=== PATIENT | male | born 1965 | race Caucasian/White ===

== ENCOUNTER 2020-12-08 07:21 | Outpatient (REF) | payer OTHER, SELFPAY ==
[2020-12-08 08:14] LABS: MANUAL DIFF FLAG NO
[2020-12-08 08:17] LABS: Basophils Percent Auto 0.4 % (0-2); Eosinophils Absolute Auto 0.2 X10*3/uL (0.0-0.4); Eosinophils Percent Auto 1.4 % (0-4); Hematocrit 46.5 % (42-52); Hemoglobin 15.2 g/dl (14.0-18.0); Imm Gran Abs Auto 0.06 X10*3/uL (0.00-0.03); Imm Gran Pct Auto 0.6 % (0.0-0.4); Lymphocytes Absolute Auto 2.3 X10*3/uL (1.2-4.9); Lymphocytes Percent Auto 21.2 % (20-40); Mean Corpuscular HGB Conc 32.7 g/dl (31.0-36.0); Mean Corpuscular Hemoglobin 28.5 pg (27.0-33.0); Mean Corpuscular Volume 87.2 fL (80-98); Mean Platelet Volume 10.7 fL (9.4-12.4); Monocytes Absolute Auto 0.7 X10*3/uL (0.1-1.2); Monocytes Percent Auto 6.8 % (2-11); Neutrophils Absolute Auto 7.6 X10*3/uL (2.0-8.3); Neutrophils Percent Auto 69.6 % (45-73); Platelet Count 342 X10*3/uL (160-400); Red Blood Count 5.33 X10*6/uL (4.60-5.80); Red Cell Distribution Width 13.2 % (11.0-16.0); White Blood Count 10.9 X10*3/uL (4.8-10.8)
[2020-12-08 08:41] LABS: Alanine Aminotransferase 41 U/L (0-40); Albumin Level 4.4 g/dL (3.5-5.0); Alkaline Phosphatase 108 U/L (39-117); Anion Gap 12 (12-20); Aspartate Amino Transferase 22 U/L (5-37); Bilirubin Total 0.3 mg/dL (0.0-1.0); Blood Urea Nitrogen 23 mg/dL (9-16); Calcium 9.5 mg/dL (8.4-10.2); Carbon Dioxide 26 mmol/L (22-29); Chloride 109 mmol/L (96-108); Cholesterol 280 mg/dL; Estimated Glomerular Filt Rate > 60; Glucose Fasting 105 mg/dL (60-99); HDL Cholesterol 44 mg/dL; LDL Cholesterol Calculated 176 mg/dl; Potassium 4.7 mmol/L (3.3-5.1); Sodium 142 mmol/L (135-145); Total Protein 7.1 g/dL (6.5-8.0); Triglycerides 300 mg/dL
[2020-12-08 08:48] LABS: Glucose Urine UA NEG (NEG); Leukocyte Esterase Urine NEG (NEG); Nitrite Urine NEG (NEG); Specific Gravity - Urine >= 1.030 (1.005-1.025); UACC Culture Trigger NO; Urine Blood 1+ (NEG); Urine Ketones NEG (NEG); Urine Protein NEG (NEG-TRACE)
[2020-12-08 08:52] LABS: Appearance Urine HAZY; Color Urine YELLOW
[2020-12-08 08:58] LABS: Mucus Urine 2+ /LPF; Squamous Epithelial Cell Urine TRACE /LPF; WBC Urine 0 /HPF (0-4)
[2020-12-08 09:03] LABS: TSH reflex Free T4 1.41 uIU/mL (0.32-4.0)
== END 2020-12-08 07:22 | disposition home or self-care (01) ==
LOC: HO.LAB 07:21
PROVIDERS: PCP Internal Medicine; Visit Provider Internal Medicine
DX: I10 Essential (primary) hypertension (principal); E78.00 Pure hypercholesterolemia, unspecified
CPT/HCPCS: 36415; 80053; 80061; 81001; 84443; 85025

== ENCOUNTER 2021-07-31 08:00 | Outpatient (REF) | payer OTHER, SELFPAY ==
[2021-07-31 08:20] LABS: MANUAL DIFF FLAG NO
[2021-07-31 09:31] LABS: Basophils Percent Auto 0.4 % (0-2); Eosinophils Absolute Auto 0.2 X10*3/uL (0.0-0.4); Hematocrit 45.7 % (42.0-52.0); Hemoglobin 14.8 g/dl (14.0-18.0); Imm Gran Abs Auto 0.03 X10*3/uL (0.00-0.03); Imm Gran Pct Auto 0.3 % (0.0-0.4); Lymphocytes Absolute Auto 1.9 X10*3/uL (1.2-4.9); Lymphocytes Percent Auto 21.7 % (20-40); Mean Corpuscular HGB Conc 32.4 g/dl (31.0-36.0); Mean Corpuscular Hemoglobin 28.3 pg (27.0-33.0); Mean Corpuscular Volume 87.4 fL (80.0-98.0); Mean Platelet Volume 10.8 fL (9.4-12.4); Monocytes Absolute Auto 0.8 X10*3/uL (0.1-1.2); Monocytes Percent Auto 8.8 % (2-11); Neutrophils Absolute Auto 5.9 x10*3/uL (2.0-8.3); Neutrophils Percent Auto 66.8 % (45-73); Platelet Count 353 X10*3/uL (160-400); Red Blood Count 5.23 X10*6/uL (4.60-5.80); Red Cell Distribution Width 13.4 % (11.0-16.0); White Blood Count 8.9 X10*3/uL (4.8-10.8)
[2021-07-31 09:36] LABS: Estimated Average Glucose 108 mg/dL; Hemoglobin A1c % 5.4 %
[2021-07-31 10:13] LABS: Alanine Aminotransferase 18 U/L (0-40); Albumin Level 4.1 g/dL (3.5-5.0); Alkaline Phosphatase 87 U/L (39-117); Anion Gap 11 (12-20); Aspartate Amino Transferase 19 U/L (5-37); Bilirubin Total 0.6 mg/dL (0.0-1.0); Blood Urea Nitrogen 20 mg/dL (9-16); Calcium 9.5 mg/dL (8.4-10.2); Carbon Dioxide 25 mmol/L (22-29); Chloride 110 mmol/L (96-108); Cholesterol 232 mg/dL; Estimated Glomerular Filt Rate > 60; Glucose Fasting 104 mg/dL (60-99); HDL Cholesterol 43 mg/dL; LDL Cholesterol Calculated 169 mg/dl; Potassium 5.3 mmol/L (3.3-5.1); Sodium 141 mmol/L (135-145); Total Protein 6.5 g/dL (6.5-8.0); Triglycerides 101 mg/dL
[2021-07-31 10:17] LABS: TSH reflex Free T4 1.26 uIU/mL (0.32-4.0)
[2021-07-31 10:17] LABS: Appearance Urine CLEAR; Color Urine YELLOW; Glucose Urine UA NEG (NEG); Leukocyte Esterase Urine NEG (NEG); Nitrite Urine NEG (NEG); PH 5.5 (5.0-8.0); Specific Gravity - Urine >= 1.030 (1.005-1.025); UACC Culture Trigger NO; Urine Blood 1+ (NEG); Urine Ketones NEG (NEG); Urine Protein NEG (NEG-TRACE)
[2021-07-31 10:26] LABS: Mucus Urine 2+ /LPF; Squamous Epithelial Cell Urine 1+ /LPF; WBC Urine 0 /HPF (0-4)
== END 2021-07-31 08:01 | disposition home or self-care (01) ==
LOC: HO.LAB 08:00
PROVIDERS: PCP Internal Medicine; Visit Provider Internal Medicine
DX: E78.00 Pure hypercholesterolemia, unspecified (principal); I10 Essential (primary) hypertension; R73.01 Impaired fasting glucose
CPT/HCPCS: 36415; 80053; 80061; 81001; 81003; 83036; 84443; 85025

== ENCOUNTER 2021-10-02 09:29 | Outpatient (REF) | payer OTHER, SELFPAY ==
--- NOTE | ~2021-10-02 | XR_ITS ---
EXAMINATION: BILATERAL SHOULDER. CLINICAL INFORMATION: Pain. COMPARISON: None TECHNIQUE: 4 views each shoulder. FINDINGS: Left shoulder: There is a maintained glenohumeral and AC joint space. No bony erosive changes. No visible acute fracture, dislocation or subluxation seen. The soft tissues are normal. Right shoulder: There is a maintained glenohumeral and AC joint space. No visible acute fracture or dislocation seen. The soft tissues are normal. XR/XR shoulder RT min 2V IMPRESSION: Unremarkable bilateral shoulder exam. No visible fracture, dislocation or bony erosive changes.
--- NOTE | ~2021-10-02 | XR_ITS ---
EXAMINATION: BILATERAL SHOULDER. CLINICAL INFORMATION: Pain. COMPARISON: None TECHNIQUE: 4 views each shoulder. FINDINGS: Left shoulder: There is a maintained glenohumeral and AC joint space. No bony erosive changes. No visible acute fracture, dislocation or subluxation seen. The soft tissues are normal. Right shoulder: There is a maintained glenohumeral and AC joint space. No visible acute fracture or dislocation seen. The soft tissues are normal. XR/XR shoulder LT min 2V IMPRESSION: Unremarkable bilateral shoulder exam. No visible fracture, dislocation or bony erosive changes.
== END 2021-10-02 09:30 | disposition home or self-care (01) ==
LOC: HO.XRAY 09:29
PROVIDERS: PCP Internal Medicine; Visit Provider Internal Medicine
DX: M25.511 Pain in right shoulder (principal); M25.512 Pain in left shoulder
CPT/HCPCS: 73030

== ENCOUNTER 2022-04-21 06:14 | Outpatient (REF) | payer OTHER, SELFPAY ==
[2022-04-21 06:31] LABS: MANUAL DIFF FLAG NO
[2022-04-21 07:43] LABS: Basophils Percent Auto 0.4 % (0-2); Eosinophils Absolute Auto 0.2 X10*3/uL (0.0-0.4); Eosinophils Percent Auto 2.3 % (0-4); Hematocrit 47.5 % (42.0-52.0); Hemoglobin 15.5 g/dl (14.0-18.0); Imm Gran Abs Auto 0.07 X10*3/uL (0.00-0.03); Imm Gran Pct Auto 0.7 % (0.0-0.4); Lymphocytes Absolute Auto 2.3 X10*3/uL (1.2-4.9); Lymphocytes Percent Auto 21.8 % (20-40); Mean Corpuscular HGB Conc 32.6 g/dl (31.0-36.0); Mean Corpuscular Hemoglobin 28.5 pg (27.0-33.0); Mean Corpuscular Volume 87.5 fL (80.0-98.0); Mean Platelet Volume 10.4 fL (9.4-12.4); Monocytes Absolute Auto 0.9 X10*3/uL (0.1-1.2); Monocytes Percent Auto 8.2 % (2-11); Neutrophils Absolute Auto 6.9 x10*3/uL (2.0-8.3); Neutrophils Percent Auto 66.6 % (45-73); Platelet Count 406 X10*3/uL (160-400); Red Blood Count 5.43 X10*6/uL (4.60-5.80); White Blood Count 10.4 X10*3/uL (4.8-10.8)
[2022-04-21 07:55] LABS: Appearance Urine Clear; Color Urine Yellow; Glucose Urine UA Negative (Negative); Leukocyte Esterase Urine Negative (Negative); Nitrite Urine Negative (Negative); Specific Gravity - Urine >= 1.030 (1.005-1.025); Urine Blood Negative (Negative); Urine Ketones Negative (Negative); Urine Protein Trace mg/dL (Neg-Trace)
[2022-04-21 07:56] LABS: Estimated Average Glucose 108 mg/dL; Hemoglobin A1c % 5.4 %
[2022-04-21 08:34] LABS: Alanine Aminotransferase 25 U/L (0-40); Albumin Level 4.4 g/dL (3.5-5.0); Alkaline Phosphatase 115 U/L (39-117); Anion Gap 13 (12-20); Aspartate Amino Transferase 21 U/L (5-37); Bilirubin Total 0.4 mg/dL (0.0-1.0); Blood Urea Nitrogen 24 mg/dL (9-16); Calcium 9.4 mg/dL (8.4-10.2); Carbon Dioxide 25 mmol/L (22-29); Chloride 107 mmol/L (96-108); Cholesterol 254 mg/dL; Estimated Glomerular Filt Rate > 60; Glucose Fasting 105 mg/dL (60-99); HDL Cholesterol 43 mg/dL; LDL Cholesterol Calculated 170 mg/dl; Potassium 4.9 mmol/L (3.3-5.1); Sodium 140 mmol/L (135-145); TSH reflex Free T4 2.13 uIU/mL (0.32-4.0); Total Protein 6.9 g/dL (6.5-8.0); Triglycerides 208 mg/dL; Vitamin D 25-OH Total 19.1 ng/mL (>30)
== END 2022-04-21 06:15 | disposition home or self-care (01) ==
LOC: HO.LAB 06:14
PROVIDERS: PCP Internal Medicine; Visit Provider Internal Medicine
DX: E78.00 Pure hypercholesterolemia, unspecified (principal); E55.9 Vitamin D deficiency, unspecified; R73.01 Impaired fasting glucose; R30.0 Dysuria; I10 Essential (primary) hypertension
CPT/HCPCS: 36415; 80053; 80061; 81003; 82306; 83036; 84443; 85025

== ENCOUNTER 2022-08-23 06:00 | Outpatient (REF) | payer OTHER, SELFPAY ==
[2022-08-23 06:19] LABS: MANUAL DIFF FLAG NO
[2022-08-23 07:36] LABS: Basophils Absolute Auto 0.1 X10*3/uL (0.0-0.2); Basophils Percent Auto 0.5 % (0-2); Eosinophils Absolute Auto 0.2 X10*3/uL (0.0-0.4); Eosinophils Percent Auto 2.3 % (0-4); Hematocrit 47.1 % (42.0-52.0); Hemoglobin 15.5 g/dl (14.0-18.0); Imm Gran Abs Auto 0.03 X10*3/uL (0.00-0.03); Imm Gran Pct Auto 0.3 % (0.0-0.4); Lymphocytes Percent Auto 29.6 % (20-40); Mean Corpuscular HGB Conc 32.9 g/dl (31.0-36.0); Mean Corpuscular Hemoglobin 28.5 pg (27.0-33.0); Mean Corpuscular Volume 86.6 fL (80.0-98.0); Mean Platelet Volume 10.5 fL (9.4-12.4); Monocytes Absolute Auto 0.9 X10*3/uL (0.1-1.2); Monocytes Percent Auto 8.4 % (2-11); Neutrophils Absolute Auto 5.9 x10*3/uL (2.0-8.3); Neutrophils Percent Auto 58.9 % (45-73); Platelet Count 380 X10*3/uL (160-400); Red Blood Count 5.44 X10*6/uL (4.60-5.80); Red Cell Distribution Width 13.2 % (11.0-16.0); White Blood Count 10.1 X10*3/uL (4.8-10.8)
[2022-08-23 08:24] LABS: Alanine Aminotransferase 37 U/L (0-40); Albumin Level 4.3 g/dL (3.5-5.0); Alkaline Phosphatase 113 U/L (39-117); Anion Gap 14 (12-20); Aspartate Amino Transferase 26 U/L (5-37); Bilirubin Total 0.2 mg/dL (0.0-1.0); Blood Urea Nitrogen 24 mg/dL (9-16); Calcium 9.4 mg/dL (8.4-10.2); Carbon Dioxide 23 mmol/L (22-29); Chloride 110 mmol/L (96-108); Cholesterol 243 mg/dL; Estimated Glomerular Filt Rate > 60; Glucose Fasting 104 mg/dL (60-99); HDL Cholesterol 44 mg/dL; LDL Cholesterol Calculated 143 mg/dl; Potassium 4.6 mmol/L (3.3-5.1); Sodium 142 mmol/L (135-145); Total Protein 6.8 g/dL (6.5-8.0); Triglycerides 281 mg/dL
[2022-08-23 08:25] LABS: TSH reflex Free T4 2.35 uIU/mL (0.32-4.0); Vitamin D 25-OH Total 32.8 ng/mL (>30)
[2022-08-23 08:26] LABS: Prostate Specific Antigen 0.59 ng/mL (<0.05-4.0)
[2022-08-23 08:35] LABS: Appearance Urine Cloudy; Color Urine Yellow; Glucose Urine UA Negative (Negative); Leukocyte Esterase Urine Negative (Negative); Nitrite Urine Negative (Negative); Specific Gravity - Urine 1.025 (1.005-1.025); Urine Blood Negative (Negative); Urine Ketones Negative (Negative); Urine Protein Negative (Neg-Trace)
== END 2022-08-23 06:01 | disposition home or self-care (01) ==
LOC: HO.LAB 06:00
PROVIDERS: Nurse Practitioner Family; PCP Internal Medicine; Visit Provider Internal Medicine
DX: I10 Essential (primary) hypertension (principal); E78.00 Pure hypercholesterolemia, unspecified; E55.9 Vitamin D deficiency, unspecified; R79.89 Other specified abnormal findings of blood chemistry; Z12.5 Encounter for screening for malignant neoplasm of prostate
CPT/HCPCS: 36415; 80053; 80061; 81003; 82306; 84153; 84443; 85025

== ENCOUNTER 2022-11-09 09:49 | Outpatient (REF) | payer OTHER, SELFPAY ==
--- NOTE | ~2022-11-09 | XR_ITS ---
Exams:: Bilateral shoulders 2 views each HISTORY: Pain. FINDINGS: No focal lesion. The soft tissue calcifications. Joint spaces preserved. Minimal hypertrophic changes about the right greater tuberosity which may be sequela of old injury. XR/XR shoulder RT min 2V IMPRESSION: Minor chronic findings right shoulder. This may be sequela of an old injury.
--- NOTE | ~2022-11-09 | XR_ITS ---
Exams:: Bilateral shoulders 2 views each HISTORY: Pain. FINDINGS: No focal lesion. The soft tissue calcifications. Joint spaces preserved. Minimal hypertrophic changes about the right greater tuberosity which may be sequela of old injury. XR/XR shoulder LT min 2V IMPRESSION: Minor chronic findings right shoulder. This may be sequela of an old injury.
== END 2022-11-09 09:50 | disposition home or self-care (01) ==
LOC: HO.HOSX 09:49
PROVIDERS: Visit Provider Orthopaedic Surgery
DX: M25.811 Other specified joint disorders, right shoulder (principal); M25.512 Pain in left shoulder
CPT/HCPCS: 20610; 73030; 99202; J3301

== ENCOUNTER 2022-11-09 15:13 | Outpatient (AMB) | payer OTHER, SELFPAY ==
--- NOTE | 2022-11-09 15:27 | MHC.OFFVIS ---
Intake Intake Visit Reasons: New Pt - Bilateral Shoulder Pain Intake Note: Kyle is a 57 year old left hand dominant male whop presents today as a new patient for a evaluation for bilateral shoulder pain. Patient reports having pain for many years but it has gotten worse over the pat 2 years. Patient reports his right shoulder is worse than his left. Hx of PT with no relief. No hx of injections. His pain is on the lateral aspect of both shoulders. He states when he puts his left arm behind his back he feels like he arm went on him and he has to shake it back. Pain is worse when doing over the head lifting,pulling and pushing. Denies numbness and tingling. He has done physical therapy for 12 weeks over the last 6 months which aggravated his pain he has also tried Tylenol and anti-inflammatory medicines which gave him minimal relief. He reports weakness when lifting his right hand above shoulder height. Allergies No Known Allergies [No Known Allergies*] Allergy (Verified 11/09/22 15:32) Medication List - Last Reconciled 11/09/22 by Syed Cope MD lisinopril 10 mg PO DAILY 90 days pravastatin 10 mg PO DAILY 90 days [facility] Medical History Benign essential hypertension Impaired fasting glucose Overweight (BMI 25.0-29.9) Plantar wart, left foot Pure hypercholesterolemia Smoker Vitamin D deficiency Surgical History No significant past surgical history Family History Mother Bladder cancer COPD (chronic obstructive pulmonary disease) Father No problems noted. Social History Housing: House Alcohol intake: current Alcohol intake frequency: a few times a month Alcohol type: beer Patient Tobacco Use Status: Current everyday Tobacco user Tobacco use type: Cigarette Cigarette Packs Per Day: 1 Cigarettes Per Day: 12 e-Cigarette/Vaping Use: Never Used Second Hand Smoke Exposure: Yes service: No Current occupational status: employed Cognitive needs: No Hearing needs: No Vision needs: No Physical Exam Const Other: Well-nourished well-developed very friendly male awake alert and oriented x3 in no acute distress Extrem Other: Bilateral upper extremity examination shows good capillary refill, no skin lesions noted, normal sensation light touch Bilateral shoulder examination shows forward flexion to 160 degrees, external rotation to 50 degrees, positive impingement signs, 4/5 strength with supraspinatus testing, tenderness over his acromioclavicular joints, no instability Office Procedures Joint Injection/Drain Joint Injection/Drain Primary Site: right shoulder Prep: site was prepped using aseptic technique Injected: 40 mg of, Kenalog and 1% plain lidocaine Procedure: The patient tolerated the procedure well Coding - Large joint Procedure code (CPT) selection complete Results Reviewed Results Reviewed: X-rays of the patient's bilateral shoulders taken today show severe acromioclavicular joint narrowing, type 2 acromion, no acute bony abnormalities Assessment & Plan Assessment & Plan (1) Impingement of right shoulder: Code(s): M25.811 - Other specified joint disorders, right shoulder Plan Mr. Bean presents with bilateral shoulder pains and weakness, right greater than left, due to impingement syndrome, acromioclavicular joint arthritis and possible rotator cuff tearing. I had a lengthy discussion with the patient regarding the treatment options. He wishes to hold off on surgery for as long as possible. I agree with this plan. At this point the patient's left shoulder pain is tolerable to him. The risks and benefits of a right shoulder cortisone injection were discussed at length with the patient. He wished to proceed. He tolerated the injection well. Activity modifications were discussed at length with the patient. He will follow up with me on an as-needed basis should his symptoms not plateau at an unacceptable level over the next few months. Feel free to call me at any time should questions regarding his orthopedic management arise. Thank you very much for asking me to see this very friendly gentleman. I spent 22 minutes in reviewing the patient's records and imaging studies, seeing the patient and documenting in the medical record. Orders: Orders XR shoulder LT min 2V Today M25.512 - Pain in left shoulder XR shoulder RT min 2V Today M25.511 - Pain in right shoulder AMB Joint Injection/Aspiration Today M25.811 - Other specified joint disorders, right shoulder Coding Level of Care Code New Pt Level 2 (18975) Diagnoses Impingement of right shoulder M25.811 CPT Codes Coding - 17037 Large joint: 86634 - Large joint ([id number])
== END 2022-11-09 15:59 | disposition home or self-care (01) ==
PROVIDERS: PCP Internal Medicine; Visit Provider Orthopaedic Surgery
DX: M25.811 Other specified joint disorders, right shoulder (principal); M25.512 Pain in left shoulder; M25.511 Pain in right shoulder
CPT/HCPCS: 20610; 99204

== ENCOUNTER 2022-12-30 08:42 | Outpatient (AMB) | payer OTHER, SELFPAY ==
--- NOTE | 2022-12-30 08:49 | A.OFFVIS_ITS ---
Intake Vital Signs 12/30/22 08:59 Height 6 ft Weight 212 lb BMI 28.7 Intake Visit Reasons: OV - Right Shoulder Pain - Last Injection 11/09/22 Intake Note: Kyle 57 yr old male presents today for his W/C injury from 12/26/22. States while working on a car, he heard a pop in shoulder. 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 Since that time he has not been able to lift his right hand above shoulder height. He did have a cortisone injection given into his right shoulder on 11/09/2022. The patient states that his pain and weakness are significantly worse since suffering this injury at work. Allergies No Known Allergies [No Known Allergies*] Allergy (Verified 12/30/22 08:50) Medication List - Last Reconciled 12/30/22 by Syed Cope MD lisinopril 10 mg PO DAILY 90 days pravastatin 10 mg PO DAILY 90 days [facility] Medical History Benign essential hypertension Impaired fasting glucose Overweight (BMI 25.0-29.9) Plantar wart, left foot Pure hypercholesterolemia Smoker Vitamin D deficiency Surgical History No significant past surgical history Family History Mother Bladder cancer COPD (chronic obstructive pulmonary disease) Father No problems noted. Social History Housing: House Alcohol intake: current Alcohol intake frequency: a few times a month Alcohol type: beer Patient Tobacco Use Status: Current everyday Tobacco user Tobacco use type: Cigarette Cigarette Packs Per Day: 1 Cigarettes Per Day: 12 e-Cigarette/Vaping Use: Never Used Second Hand Smoke Exposure: Yes service: No Current occupational status: employed Cognitive needs: No Hearing needs: No Vision needs: No Physical Exam Vital Signs: BMI result Body Mass Index 28.7 Const Other: Well-nourished well-developed very friendly male awake alert and oriented x3 in no acute distress Extrem Other: Bilateral upper extremity examination shows good capillary refill, no skin lesions noted, normal sensation light touch Right shoulder examination shows decreased range of motion when compared to his left shoulder, 3/5 strength with supraspinatus testing, positive impingement signs, no instability Assessment & Plan Assessment & Plan (1) Rotator cuff insufficiency of right shoulder: Code(s): M25.311 - Other instability, right shoulder Plan: Mr. Bean presents with progressively worsening right shoulder pain and weakness after suffering an injury at work most likely due to a full-thickness rotator cuff tear. Thus, I will send the patient for an MRI of his right shoulder for further evaluation. I will keep him out of work until the MRI is completed and we discussed the treatment options. I will see him back after the imaging study. He will continue with range of motion exercises in the meantime to prevent stiffness. Feel free to call me at any time should questions regarding his orthopedic management arise. I spent 22 minutes in reviewing the patient's records and imaging studies, seeing the patient and documenting in the medical record. Orders: Orders MR shoulder RT wo con Today M25.311 - Other instability, right shoulder Coding Level of Care Code Est Pt Level 2 (58524) Diagnoses Rotator cuff insufficiency of right shoulder M25.311
[2022-12-30 08:59] VITALS: BMI 28.7
== END 2022-12-30 09:19 | disposition home or self-care (01) ==
PROVIDERS: PCP Internal Medicine; Visit Provider Orthopaedic Surgery
DX: M25.311 Other instability, right shoulder (principal)
CPT/HCPCS: 99212

== ENCOUNTER → 2022-12-30 08:42 | Outpatient (BNVA) | payer OTHER, SELFPAY | PROVIDERS: PCP Internal Medicine; Visit Provider Orthopaedic Surgery | DX: M25.311 Other instability, right shoulder (principal) | CPT/HCPCS: 99212 ==

== ENCOUNTER 2023-01-07 10:12 | Outpatient (REF) | payer OTHER, SELFPAY ==
--- NOTE | ~2023-01-07 | XR_ITS ---
EXAMINATION: Pre-MRI screening. HISTORY: Foreign body in eyes. COMPARISON: None. TECHNIQUE: 3 views. FINDINGS: 3 views of the orbits reveal no radiopaque metallic foreign body or soft tissue abnormality. XR/XR pre mri screening IMPRESSION: No radiopaque metallic foreign body seen in the orbits.
--- NOTE | ~2023-01-07 | MR_ITS ---
EXAMINATION: MR SHOULDER WITHOUT CONTRAST, RIGHT CLINICAL INFORMATION: Right shoulder pain following a work injury on 12/26/2022. COMPARISON: Most recent right shoulder radiographs dated 11/09/2022. TECHNIQUE: MRI of the shoulder without contrast was performed on a high-field scanner. FINDINGS: ROTATOR CUFF: Near-complete, full-thickness tear of the supraspinatus tendon with extension into the anterior leading edge of the infraspinatus tendon. There appear to be a few thin, irregular posterior tendon fibers remaining intact. Overall tearing measures up to 3.4 x 2.4 cm in greatest dimension (AP x ML) with the articular surface tendon fibers retracted proximal to the humeral head apex. Fluid extending proximally along the infraspinatus myotendinous junction with mild edema in the muscle belly, consistent with an acute strain/partial tear. Moderate subscapularis tendinosis with distal articular surface fraying/partial tearing. Additionally, there is insertional bursal surface fraying/partial tearing. No definite full-thickness tendon tear. No muscle atrophy or fatty infiltration. BICEPS: Flattening as well as attenuation and near-complete absence of the intra-articular proximal long head biceps tendon, consistent with near-complete longitudinal partial tearing. CORACOACROMIAL ARCH: The undersurface of the acromion is minimally curved with small subacromial spurs. [id number] acromioclavicular osteoarthritis. LABRUM/CAPSULE: Peripheral fraying through the superior labrum. No displaced undersurface labral tear. Intact inferior joint capsule. GLENOHUMERAL JOINT/MARROW: Intact articular cartilage. Small joint effusion. MR/MR shoulder RT wo con IMPRESSION: 1. Near-complete, full-thickness tear of the supraspinatus tendon with extension into the anterior leading edge of the infraspinatus tendon. There appear to be a few thin, irregular posterior tendon fibers remaining intact. Overall tearing measures up to 3.4 x 2.4 cm in greatest dimension (AP x ML) with the articular surface tendon fibers retracted proximal to the humeral head apex. Fluid extending proximally along the infraspinatus myotendinous junction with mild edema in the muscle belly, consistent with an acute strain/partial tear. 2. Moderate subscapularis tendinosis with distal articular surface fraying/partial tearing as well as insertional bursal surface fraying/partial tearing. No full-thickness tendon defect. 3. Near-complete longitudinal partial tearing of the intra-articular proximal long head biceps tendon. 4. Xpxhthfi-td-blfliu acromioclavicular osteoarthritis with small subacromial spurs. 5. Peripheral fraying through the superior labrum. No displaced undersurface labral tear. 6. Small glenohumeral joint effusion.
== END 2023-01-07 10:13 | disposition home or self-care (01) ==
LOC: HO.MRI 10:12
PROVIDERS: PCP Internal Medicine; Visit Provider Orthopaedic Surgery
DX: M25.311 Other instability, right shoulder (principal)
CPT/HCPCS: 73221

== ENCOUNTER 2023-01-12 08:40 | Outpatient (AMB) | payer OTHER, SELFPAY ==
--- NOTE | 2023-01-12 08:42 | MHC.OFFVIS ---
Intake Intake Visit Reasons: OV-Right Shoulder follow up Intake Note: Kyle 57 yr old male presents today for his W/C injury from 12/26/22. States while working on a car, he heard a pop in shoulder. 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 Since that time he has not been able to lift his right hand above shoulder height. He did have a cortisone injection given into his right shoulder on 11/09/2022. The patient states that his pain and weakness are significantly worse since suffering this injury at work. Patient has been doing gentle [id number]-[id number] exercises on his own. He has not Allergies No Known Allergies [No Known Allergies*] Allergy (Verified 01/12/23 08:42) [facility] Medical History Vitamin D deficiency Impaired fasting glucose Overweight (BMI 25.0-29.9) Smoker Plantar wart, left foot Pure hypercholesterolemia Benign essential hypertension Surgical History No significant past surgical history Family History Mother Bladder cancer COPD (chronic obstructive pulmonary disease) Father No problems noted. Social History Housing: House Alcohol intake: current Alcohol intake frequency: a few times a month Alcohol type: beer Patient Tobacco Use Status: Current everyday Tobacco user Tobacco use type: Cigarette Cigarette Packs Per Day: 1 Cigarettes Per Day: 12 e-Cigarette/Vaping Use: Never Used Second Hand Smoke Exposure: Yes service: No Current occupational status: employed Cognitive needs: No Hearing needs: No Vision needs: No Physical Exam Const Other: Well-nourished well-developed very friendly male awake alert and oriented x3 in no acute distress Extrem Other: Bilateral upper extremity examination shows good capillary refill, no skin lesions noted, normal sensation light touch Right shoulder examination shows decreased active range of motion but full passive range of motion when compared to his left shoulder, 4/5 strength with supraspinatus testing, positive impingement signs Results Reviewed Results Reviewed: MRI of the patient's right shoulder shows a full-thickness tear of the supraspinatus tendon with retraction half-way to the glenoid, a type 2 acromion, acromioclavicular joint narrowing, no acute bony abnormalities Assessment & Plan Assessment & Plan (1) Rotator cuff insufficiency of right shoulder: Code(s): M25.311 - Other instability, right shoulder Plan: Mr. Bean presents with right shoulder pain and weakness due to impingement syndrome, acromioclavicular joint arthritis and a large rotator cuff tear. I had a lengthy discussion with the patient regarding the treatment options. I did recommend surgery to optimize his future functional level. The patient is interested in proceeding with surgery. Because of the size of the rotator cuff tear the patient may need a graft placed within the repair site to help reinforce it strength at the time of surgery. Thus, I will arrange for the patient to have an appointment with my partner, Dr. Buster Benítez, who can perform this type of grafting procedure if needed. Patient will continue with his range of motion exercises in the meantime. He will follow-up as instructed. Feel free to call me at any time should questions regarding his orthopedic management arise. I spent 22 minutes in reviewing the patient's records and imaging studies, seeing the patient and documenting in the medical record. Coding Level of Care Code Est Pt Level 2 (97866) Diagnoses Rotator cuff insufficiency of right shoulder M25.311
== END 2023-01-12 09:03 | disposition home or self-care (01) ==
PROVIDERS: PCP Internal Medicine; Visit Provider Orthopaedic Surgery
DX: M25.311 Other instability, right shoulder (principal)
CPT/HCPCS: 99212

== ENCOUNTER → 2023-01-12 08:40 | Outpatient (BNVA) | payer OTHER, SELFPAY | PROVIDERS: PCP Internal Medicine; Visit Provider Orthopaedic Surgery | DX: M25.311 Other instability, right shoulder (principal) | CPT/HCPCS: 99212 ==

== ENCOUNTER 2023-01-23 09:02 | Outpatient (AMB) | payer OTHER, SELFPAY ==
--- NOTE | 2023-01-23 08:52 | MHC.OFFVIS ---
Intake Vital Signs 01/23/23 09:18 Height 6 ft Weight 212 lb BMI 28.7 Intake Visit Reasons: OV-Right Shoulder RTC Intake Note: Kyle is a 57 year old right hand dominant male who presents today for a follow up of his right shoulder, this is a W/C injury from 12/26/22. He was last seen with Dr. Cope who states he has AC joint OA as well as a Rotator Cuff Tear of this right shoulder and recommends surgical intervention. Last injection was done with Dr. Cope 11/09/22 which was helping him until he re-injured his shoulder at work on 12/26/22. Patient presents today to discuss this intervention. Allergies No Known Allergies [No Known Allergies*] Allergy (Verified 01/23/23 09:18) HPI OV-Right Shoulder RTC HPI Details Kyle is a 57 year old man who presents to discuss surgery for his right shoulder RTC tear, from a work injury, DOI: 12/26/22. He has been following with Dr. Cope for his shoulder, and received an injection on 11/09/22 with some relief. He would like to discuss surgery. He complains of pain with daily activity, worse with overhead activity & at night. He is not able to work with this injury and he wants to know what can be done for him He says prior to his work injury he has been dealing with intermittent shoulder pain for some time. Following his injury his pain was severe but has started to improve in the last week. [facility] Medical History Vitamin D deficiency Impaired fasting glucose Overweight (BMI 25.0-29.9) Smoker Plantar wart, left foot Pure hypercholesterolemia Benign essential hypertension Surgical History No significant past surgical history Family History Mother Bladder cancer COPD (chronic obstructive pulmonary disease) Father No problems noted. Social History Housing: House Alcohol intake: current Alcohol intake frequency: a few times a month Alcohol type: beer Patient Tobacco Use Status: Current everyday Tobacco user Tobacco use type: Cigarette Cigarette Packs Per Day: 1 Cigarettes Per Day: 12 e-Cigarette/Vaping Use: Never Used Second Hand Smoke Exposure: Yes service: No Current occupational status: employed Cognitive needs: No Hearing needs: No Vision needs: No Review of Systems Const All systems reviewed & are unremarkable except as noted in HPI and below Physical Exam Vital Signs: BMI result Body Mass Index 28.7 Const General: no acute distress, alert and awake Orientation/consciousness: patient oriented x3 HEENT Head: Yes normocephalic and Yes atraumatic Eyes EOM: EOMs intact bilaterally Resp Effort & Inspection: normal respiratory effort and able to speak in complete sentences Cardio Jugular venous distension: no JVD Skin General skin exam: turgor normal Rashes: no rashes Neuro General: patient oriented x3 Extrem Other: Right Shoulder: 90/45/130/L5 4/5 empty can Psych Appearance: grossly normal Affect: normal affect Attitude: cooperative Results Reviewed Results Reviewed: I personally reviewed relevant MR images 1. Near-complete, full-thickness tear of the supraspinatus tendon with extension into the anterior leading edge of the infraspinatus tendon. There appear to be a few thin, irregular posterior tendon fibers remaining intact. Overall tearing measures up to 3.4 x 2.4 cm in greatest dimension (AP x ML) with the articular surface tendon fibers retracted proximal to the humeral head apex. Fluid extending proximally along the infraspinatus myotendinous junction with mild edema in the muscle belly, consistent with an acute strain/partial tear. 2. Moderate subscapularis tendinosis with distal articular surface fraying/partial tearing as well as insertional bursal surface fraying/partial tearing. No full-thickness tendon defect. 3. Near-complete longitudinal partial tearing of the intra-articular proximal long head biceps tendon. 4. Zpcztfjp-[id number] acromioclavicular osteoarthritis with small subacromial spurs. 5. Peripheral fraying through the superior labrum. No displaced undersurface labral tear. 6. Small glenohumeral joint effusion. Assessment & Plan Assessment & Plan (1) Right rotator cuff tear: Code(s): M75.101 - Unspecified rotator cuff tear or rupture of right shoulder, not specified as traumatic Plan: This is a 57 year old man with a right shoulder full-thickness supraspinatus tendon tear, with some retraction, in a setting of moderate OA. This is a work related injury, DOI: 8/28/23. He has pain with overhead activities & at night, and some relief from a prior steroid injection. He feels limited in his ADLs and that he cannot work with this injury. I discussed his diagnosis and treatment options. I recommend a right shoulder RTC repair. I discussed the risks, benefits, and alternatives including, but not limited to, the risk of pain, infection, stiffness, need for further surgery as well as potential medical complications such as blood clots, pulmonary embolism and cardiac complications. I discussed the recovery timeline and process as well as the importance of PT. Kyle is a good candidate for this surgery, and he wishes to proceed with this decision. He will speak with Ananya to schedule this procedure. He should remain out of work. Plan Scribed for Buster Benítez MD by Casey Clarke, er medical technician, on 01/23/23 at 9:40 AM, EST. Coding Level of Care Code Est Pt Level 4 (66723) Diagnoses Right rotator cuff tear M75.101
[2023-01-23 09:18] VITALS: BMI 28.7
== END 2023-01-23 09:59 | disposition home or self-care (01) ==
PROVIDERS: PCP Internal Medicine; Visit Provider Orthopaedic Surgery
DX: S46.011A Strain of muscle(s) and tendon(s) of the rotator cuff of right shoulder, initial encounter (principal)
CPT/HCPCS: 99214

== ENCOUNTER → 2023-01-23 09:02 | Outpatient (BNVA) | payer OTHER, SELFPAY | PROVIDERS: PCP Internal Medicine; Visit Provider Orthopaedic Surgery | DX: M75.101 Unspecified rotator cuff tear or rupture of right shoulder, not specified as traumatic (principal) | CPT/HCPCS: 99212 ==

== ENCOUNTER 2023-02-15 06:20 | Day surgery (SDC) | payer OTHER, SELFPAY ==
[2023-02-13 07:58] VITALS: BMI 28.7
--- NOTE | 2023-02-14 09:39 | HO.ANESPROP2 ---
Documented by User: Ashlie Livingston NP 02/14/23 09:40 HPI - Anesthesia Eval Consult details Narrative: 57yo M for Right Shoulder Rotator Cuff Repair PMFSH Active Problems Active Problems: All Active Problems (Updated 01/23/23 @ 09:25 by Casey Clarke) Osteoarthritis of right shoulder (Acute) Right rotator cuff tear (Acute) Rotator cuff insufficiency of right shoulder (Acute) Impingement of right shoulder (Acute) Right shoulder pain (Acute) Left shoulder pain (Acute) Vitamin D deficiency (Acute) Adult general medical exam (Acute) Screening for prostate cancer (Acute) Screening for colon cancer (Acute) Sinus congestion (Acute) Vision impairment (Acute) Bilateral shoulder pain (Acute) Microscopic hematuria (Acute) Impaired fasting glucose (Acute) Overweight (BMI 25.0-29.9) (Acute) Smoker (Acute) Plantar wart, left foot (Acute) Pure hypercholesterolemia (Acute) Benign essential hypertension (Acute) Past Medical History Medical History Vitamin D deficiency Impaired fasting glucose Overweight (BMI 25.0-29.9) Smoker Plantar wart, left foot Pure hypercholesterolemia Benign essential hypertension Family History Family History Mother Bladder cancer COPD (chronic obstructive pulmonary disease) Father No problems noted. Surgical History Surgical History No significant past surgical history Social History Social History Housing: House Are you a primary campground caretaker to a significant other at home: No Alcohol intake: current Alcohol intake frequency: a few times a month Alcohol type: beer Patient Tobacco Use Status: Current everyday Tobacco user Tobacco use type: Cigarette Cigarette Packs Per Day: 1 Cigarettes Per Day: 20.0 e-Cigarette/Vaping Use: Never Used Second Hand Smoke Exposure: Yes Substance Use Frequency: Occasionally Have you been hit, kicked, punched, or otherwise hurt by someone within the past year? If so, by whom?: No Are you DNR?: No Advance Directives: No Advance Directives Information Provided: Yes Recently lost weight without trying: No Eating poorly because of decreased appetite: No Nutrition Risks: No Nutritional Risk Poor oral hygiene: Yes service: No Current occupational status: employed Cognitive needs: No Hearing needs: No Vision needs: No Meds Allergies Allergy/AdvReac Type Severity Reaction Status Date / Time No Known Allergies Allergy Verified 01/23/23 09:18 [No Known Allergies*] Exam Exam Date and Time: February 14, 2023 0939 Height,Weight and Vital Signs: Height 6 ft Weight 96.162 kg Pertinent Lab Results Pertinent Lab Results: Laboratory Tests 08/23/22 06:16 WBC 10.1 Hgb 15.5 Hct 47.1 Plt Count 380 Sodium 142 Potassium 4.6 Chloride 110 H Carbon Dioxide 23 BUN 24 H Creatinine 1.04 Assessment and Plan Assessment Anesthesia Assessment: Chart Reviewed Documented by User: Torsten Chin MD 02/15/23 07:33 [facility] Past Medical History Medical History Vitamin D deficiency Impaired fasting glucose Overweight (BMI 25.0-29.9) Smoker Plantar wart, left foot Pure hypercholesterolemia Benign essential hypertension Family History Family History Mother Bladder cancer COPD (chronic obstructive pulmonary disease) Father No problems noted. Family history of problems with anesthesia: No Surgical History Surgical History No significant past surgical history History of Problems with Anesthesia: No Social History Social History Housing: House Are you a primary campground caretaker to a significant other at home: No Alcohol intake: current Alcohol intake frequency: a few times a month Alcohol type: beer Patient Tobacco Use Status: Current everyday Tobacco user Tobacco use type: Cigarette Cigarette Packs Per Day: 1 Cigarettes Per Day: 20.0 e-Cigarette/Vaping Use: Never Used Second Hand Smoke Exposure: Yes Substance Use Frequency: Occasionally Have you been hit, kicked, punched, or otherwise hurt by someone within the past year? If so, by whom?: No Are you DNR?: No Advance Directives: No Advance Directives Information Provided: Yes Recently lost weight without trying: No Eating poorly because of decreased appetite: No Nutrition Risks: No Nutritional Risk Poor oral hygiene: Yes service: No Current occupational status: employed Cognitive needs: No Hearing needs: No Vision needs: No Meds Allergies Allergy/AdvReac Type Severity Reaction Status Date / Time No Known Allergies Allergy Verified 01/23/23 09:18 [No Known Allergies*] Exam Airway Mallampati Class: II TM Dist: >3cm Neck ROM: Limited Heart: rrr Lungs: cta Assessment and Plan Assessment Anesthesia Assessment: Anesthesia Plan Discussed Final Anesthetic Review Family History of Problems with Anesthesia: No History of Problems with Anesthesia: No ASA Class: III Final Preanesthetic Review: No Changes in Pt Med Stat, Meds/Allgs Chart Reviewed, Consent Obtained/Reviewed and Anes Risks/Benef Reviewed Patient Risk: Intermediate Procedure Risk: Intermediate Anesthetic Plan Anesthetic Plan: GA, Regional Block and Agree w/ Assess. and Plan Disposition: Standard PACU
[2023-02-15] VITALS (7 sets, daily range): BP systolic 112–169; BP diastolic 74–93; PULSE 60–85; RESP 10–18; TEMP 36.2–36.5; O2SAT 96; BMI 28.5
[2023-02-15] MEDS: Lactated Ringers 1,000 ML 100 ML IVCONT (07:10)
--- NOTE | 2023-02-15 10:01 | P.BOP_ITS ---
Brief Operative Note Date of Service: 02/15/23 Pre-op diagnosis: Right rtc tear Post-op diagnosis: same Procedure: Right RTC repair Implants: Aguilar and nephew helacoil double loaded medial row x 2 Aguilar and nephew knotless helacoil lateral row x 2 Surgeon: Buster Benítez MD Anesthesia: GETA Was an Fruit Loader Machine Operator used for this Procedure?: Yes Fruit Loader Machine Operator: Ivette Gray Estimated blood loss (mL): 10 IV fluids (mL): 800 Pathology: none sent Condition: stable Disposition: PACU
--- NOTE | 2023-02-23 14:01 | W.PM.OPN ---
Operative Note Operative Note Date of Service: 02/15/23 Narrative: Date of Service: 02/15/23 Pre-op diagnosis: Right rtc tear Post-op diagnosis: same Procedure: Right RTC repair Implants: Aguilar and nephew helacoil double loaded medial row x 2 Aguilar and nephew knotless helacoil lateral row x 2 Surgeon: Buster Benítez MD Anesthesia: GETA Was an Detailer Furniture used for this Procedure?: Yes Detailer Furniture: Ivette Gray Estimated blood loss (mL): 10 IV fluids (mL): 800 Pathology: none sent Condition: stable Disposition: PACU Procedure in detail: Patient was brought to the operating room and placed the the beach chair position. All bony prominences were well padded and the limb was prepped and draped in standard sterile fashion. A time out was called to identify proper site, proper procedure and proper surgeon. IV antibiotics per weight were administered. I began by making a posterolateral stab incision with a 15 blade. A blunt trochar was placed into the glenohumeral joint and I insufflated the joint with saline and a 30 degree arthroscope was placed. I established an outside- in anterior portal just distal to the biceps tendon. I then began my inspection of the glenohumeral joint. There was no biceps anchor and a degenerative labral tear. There were minimal cartilage changes at the inferior glenoid without humeral head changes. There was a full thickness undersurface RTC tear. The subcapularis was intact. I debrided the loose cartilage of the glenoid and the degenerative labral tearing. I then removed the trochar and entered the subacromial space. A direct lateral portal was then established and I performed a bursectomy. The cuff was then examined. There was a full thickness tear of the supra and infraspinatus with mild retraction. The tear was mobile. I placed two medial row double loaded anchors after using a tap just adjacent to the articular cartilage and then brought the suture limbs ( 8) through the medial cuff. I then debrided the bare area down to bleeding bone and, using a cross bridge configuration, brought 4 limbs to each of two lateral 5.0 anchors. This re-approximated the cuff anatomy anatomically. Once I was satisfied with the repair final images were captured and I removed all instrumentation. Portals were closed with nylon. Patient was placed in an abduction sling, extubated and brought to the recovery room in stable condition. There were no known complications.
== END 2023-02-15 11:58 | disposition home or self-care (01) ==
PROVIDERS: PCP Internal Medicine; Visit Provider Orthopaedic Surgery
PROC: (CPT 29827; principal; 2023-02-15 08:40)
DX: S46.011A Strain of muscle(s) and tendon(s) of the rotator cuff of right shoulder, initial encounter (principal); X58.XXXA Exposure to other specified factors, initial encounter; M19.011 Primary osteoarthritis, right shoulder; I10 Essential (primary) hypertension; E78.00 Pure hypercholesterolemia, unspecified; F17.210 Nicotine dependence, cigarettes, uncomplicated; Y93.9 Activity, unspecified; Y92.59 Other trade areas as the place of occurrence of the external cause; Y99.0 Civilian activity done for income or pay
CPT/HCPCS: 29827; C1713; J0171; J0690; J1100; J1885; J2405; J2795

== ENCOUNTER → 2023-02-15 06:20 | Outpatient (BNV) | payer OTHER, SELFPAY | PROVIDERS: PCP Internal Medicine; Visit Provider Orthopaedic Surgery | DX: S46.011A Strain of muscle(s) and tendon(s) of the rotator cuff of right shoulder, initial encounter (principal) | CPT/HCPCS: 29827 ==

== ENCOUNTER 2023-02-21 10:25 | Outpatient (AMB) | payer OTHER, SELFPAY ==
--- NOTE | 2023-02-21 10:26 | A.OFFVIS_ITS ---
Intake Intake Visit Reasons: PO-Rt RTC Repair 02/15 NE Intake Note: Kyle is a 57 year old male who presents today for a post op appointment s/p Rt RTC Repair 02/15/23 NE. Patient reports having some throbbing pain here and there but he is doing well. Denies numbness and tingling. Allergies No Known Allergies [No Known Allergies*] Allergy (Verified 02/21/23 10:27) HPI PO-Rt RTC Repair 02/15 NE HPI Details 57-year-old male who presents in the off ice today 6 days status post right rotator cuff repair, which was performed on 02/15/[address] Benítez. The patient reports he has intermittent throbbing and is doing well. He denies numbness or tingling. He was accompanied in the office today by his . The patient reports he is in need of a refill of his pain medication. He denies having his physical therapy scheduled. [facility] Medical History Vitamin D deficiency Impaired fasting glucose Overweight (BMI 25.0-29.9) Smoker Plantar wart, left foot Pure hypercholesterolemia Benign essential hypertension Surgical History No significant past surgical history Family History Mother Bladder cancer COPD (chronic obstructive pulmonary disease) Father No problems noted. Social History Housing: House Are you a primary child care development specialist to a significant other at home: No Alcohol intake: current Alcohol intake frequency: a few times a month Alcohol type: beer Patient Tobacco Use Status: Current everyday Tobacco user Tobacco use type: Cigarette Cigarette Packs Per Day: 1 Cigarettes Per Day: 20.0 e-Cigarette/Vaping Use: Never Used Second Hand Smoke Exposure: Yes service: No Current occupational status: employed Cognitive needs: No Hearing needs: No Vision needs: No Review of Systems Const All systems reviewed & are unremarkable except as noted in HPI and below Physical Exam Const General: cooperative, healthy appearing and no acute distress Resp Effort & Inspection: normal respiratory effort and able to speak in complete sentences Cardio Rate: regular rate Peripheral pulses: Peripheral pulses 2+ throughout GI Palpation (GI): Soft to palpation Skin Lesions: no lesions Rashes: no rashes Extrem Other: Right shoulder: Incision site is clean, dry, and intact. Sutures intact. No surrounding erythema or drainage. No signs of infection. Forward flexion and abduction to 45 degrees. External rotation to neutral. NVI. Assessment & Plan Assessment & Plan (1) S/P rotator cuff repair: Comment: 02/15/2023 NE Code(s): Z98.890 - Other specified postprocedural states Plan Mr. Bean is a 57-year-old male who presents in the office today 6 days status post right rotator cuff repair, which was performed on 02/15/[address] Benítez. The patient reports he has intermittent throbbing and is doing well. He denies numbness or tingling. He was accompanied in the office today by his . The patient reports he is in need of a refill of his pain medication. He denies having his physical therapy scheduled. The sling was readjusted while in the office today to make sure the patient is wearing it properly. Sutures were removed and steri-stripes were applied. The office will follow up to make sure the patient is scheduled for physical therapy to begin to work on gentle ROM. I sent in a refill prescription for oxycodone- acetaminophen 5-325 mg PO Q4-6H PRN. Follow up will be in 4 weeks, or sooner if needed. Medications: Refilled oxycodone-acetaminophen 5-325 mg (Percocet) Partial Fill upon patient request. 1 tab PO Q4-6H 7 days PRN 42 tabs 0RF pain (scale score 4-6) Patient Instructions: Scribed for Ivette Gray PA-C by Shayna Hodge medical equipment technician, on 02/21/2023 at 10:26 am, EST. Coding Level of Care Code Global (47895) Diagnoses S/P rotator cuff repair Z98.890
== END 2023-02-21 11:06 | disposition home or self-care (01) ==
PROVIDERS: PCP Internal Medicine; Visit Provider Physician Assistant
DX: Z98.890 Other specified postprocedural states (principal)
CPT/HCPCS: 99024

== ENCOUNTER → 2023-02-21 10:25 | Outpatient (BNVA) | payer OTHER, SELFPAY | PROVIDERS: PCP Internal Medicine; Visit Provider Physician Assistant ==

== ENCOUNTER 2023-03-20 10:19 | Outpatient (AMB) | payer OTHER, SELFPAY ==
--- NOTE | 2023-03-20 10:24 | MHC.OFFVIS ---
Intake Intake Visit Reasons: PO-Rt RTC Repair 02/15 NE Intake Note: Kyle is a 57 year old right hand dominant male who presents today for a 5 week post operative appointment s/p Rt RTC Repair 02/15. Anna reports that he is doing well, has some discomfort in the mornings. Allergies No Known Allergies [No Known Allergies*] Allergy (Verified 03/20/23 10:29) HPI PO-Rt RTC Repair 02/15 NE HPI Details Kyle is a 57 year old man who presents ~5 weeks S/P right RTC repair. He says he is doing well overall but does have pain in his shoulder, along with limited ROM. He says his pain is worse in the mornings and after activity. He continues to wear his sling. [facility] Medical History Vitamin D deficiency Impaired fasting glucose Overweight (BMI 25.0-29.9) Smoker Plantar wart, left foot Pure hypercholesterolemia Benign essential hypertension Surgical History No significant past surgical history Family History Mother Bladder cancer COPD (chronic obstructive pulmonary disease) Father No problems noted. Social History Housing: House Are you a primary acute care physician to a significant other at home: No Alcohol intake: current Alcohol intake frequency: a few times a month Alcohol type: beer Patient Tobacco Use Status: Current everyday Tobacco user Tobacco use type: Cigarette Cigarette Packs Per Day: 1 Cigarettes Per Day: 20.0 e-Cigarette/Vaping Use: Never Used Second Hand Smoke Exposure: Yes service: No Current occupational status: employed Cognitive needs: No Hearing needs: No Vision needs: No Review of Systems Const All systems reviewed & are unremarkable except as noted in HPI and below Physical Exam Const General: no acute distress, alert and awake Orientation/consciousness: patient oriented x3 HEENT Head: Yes normocephalic and Yes atraumatic Eyes EOM: EOMs intact bilaterally Resp Effort & Inspection: normal respiratory effort and able to speak in complete sentences Cardio Jugular venous distension: no JVD Skin General skin exam: turgor normal Rashes: no rashes Neuro General: patient oriented x3 Extrem Other: Right Shoulder: Portals C/D/I Psych Appearance: grossly normal Affect: normal affect Attitude: cooperative Assessment & Plan Assessment & Plan (1) S/P rotator cuff repair: Comment: 02/15/2023 NE Code(s): Z98.890 - Other specified postprocedural states Plan: This is a 57 year old man S/P right RTC repair, DOS: 02/15/23. He says he is doing well, and continues to wear his sling. He has some pain with activity and in the mornings, which improves somewhat with rest. I recommend he continue activity as tolerated, with no overhead activity, heavy lifting, or ER motions. He will discontinue his sling and begin PT. He should be mindful to not push through pain. He will follow up in 6 weeks. Plan Scribed for Buster Benítez MD by Casey Clarke, chief medical director, on 03/20/23 at 10:50 AM, EST. Coding Level of Care Code Global (99967) Diagnoses S/P rotator cuff repair Z98.890
== END 2023-03-20 10:59 | disposition home or self-care (01) ==
PROVIDERS: PCP Internal Medicine; Visit Provider Orthopaedic Surgery
DX: Z98.890 Other specified postprocedural states (principal)
CPT/HCPCS: 99024

== ENCOUNTER → 2023-03-20 10:19 | Outpatient (BNVA) | payer OTHER, SELFPAY | PROVIDERS: PCP Internal Medicine; Visit Provider Orthopaedic Surgery | DX: Z47.89 Encounter for other orthopedic aftercare (principal) | CPT/HCPCS: 99212 ==

== ENCOUNTER 2023-05-04 09:22 | Outpatient (AMB) | payer OTHER, SELFPAY ==
--- NOTE | 2023-05-04 09:36 | MHC.OFFVIS ---
Intake Vital Signs 05/04/23 09:44 Height 6 ft Weight 220 lb BMI 29.8 Intake Visit Reasons: PO-Rt RTC Repair 02/15/23 NE Intake Note: Kyle is a 57 year old right hand dominant male who presents today for a post operative appointment s/p Rt RTC Repair 02/15/2023. At his last appoint he was instructed to discontinue sling and avoid any overhead/heavy lifting. He states he is progressing and doing well at physical therapy. Allergies No Known Allergies [No Known Allergies*] Allergy (Verified 05/04/23 09:43) Medication List - Last Reconciled 05/04/23 by Carmen Arnold RN lisinopril 10 mg PO DAILY 90 days morphine ER (MS Contin) 15 mg PO Q12H 3 days oxycodone-acetaminophen 5-325 mg (Percocet) 1 tab PO Q6H PRN 7 days pravastatin 10 mg PO DAILY 90 days HPI PO-Rt RTC Repair 02/15/23 NE HPI Details Kyle is a 57 year old man who presents ~10 weeks S/P right RTC repair. He says he is doing well overall and both his pain and ROM have improved. He does continue to have some pain with activities but not as severe as it was prior. He has been working with PT and d/c his sling as instructed after his last appointment. [facility] Medical History Vitamin D deficiency Impaired fasting glucose Overweight (BMI 25.0-29.9) Smoker Plantar wart, left foot Pure hypercholesterolemia Benign essential hypertension Surgical History No significant past surgical history Family History Mother Bladder cancer COPD (chronic obstructive pulmonary disease) Father No problems noted. Social History Housing: House Are you a primary home health care case manager to a significant other at home: No Alcohol intake: current Alcohol intake frequency: a few times a month Alcohol type: beer Patient Tobacco Use Status: Current everyday Tobacco user Tobacco use type: Cigarette Cigarette Packs Per Day: 1 Cigarettes Per Day: 20.0 e-Cigarette/Vaping Use: Never Used Second Hand Smoke Exposure: Yes service: No Current occupational status: employed Cognitive needs: No Hearing needs: No Vision needs: No Review of Systems Const All systems reviewed & are unremarkable except as noted in HPI and below Physical Exam Vital Signs: BMI result Body Mass Index 29.8 Const General: no acute distress, alert and awake Orientation/consciousness: patient oriented x3 HEENT Head: Yes normocephalic and Yes atraumatic Eyes EOM: EOMs intact bilaterally Resp Effort & Inspection: normal respiratory effort and able to speak in complete sentences Cardio Jugular venous distension: no JVD Skin General skin exam: turgor normal Rashes: no rashes Neuro General: patient oriented x3 Extrem Other: 30/90/120/hip pocket portal c/d/i Psych Appearance: grossly normal Affect: normal affect Attitude: cooperative Assessment & Plan Assessment & Plan (1) S/P rotator cuff repair: Comment: 02/15/2023 NE Code(s): Z98.890 - Other specified postprocedural states Plan: Doing well but not able to lift comfortably yet. Continue progressive strengthening and f/u 6 weeks. no lifting > 5 lbs with work Plan Scribed for Buster Benítez MD by Casey Clarke, biomedical electronics technician, on 05/04/23 at 9:55 AM, EST. Coding Level of Care Code Global (69111) Diagnoses S/P rotator cuff repair Z98.890
[2023-05-04 09:44] VITALS: BMI 29.8
== END 2023-05-04 10:11 | disposition home or self-care (01) ==
PROVIDERS: PCP Internal Medicine; Visit Provider Orthopaedic Surgery
DX: Z98.890 Other specified postprocedural states (principal)
CPT/HCPCS: 99024

== ENCOUNTER → 2023-05-04 09:22 | Outpatient (BNVA) | payer OTHER, SELFPAY | PROVIDERS: PCP Internal Medicine; Visit Provider Orthopaedic Surgery | DX: Z47.89 Encounter for other orthopedic aftercare (principal) | CPT/HCPCS: 99212 ==

== ENCOUNTER 2023-06-26 09:23 | Outpatient (AMB) | payer OTHER, SELFPAY ==
--- NOTE | 2023-06-26 08:23 | MHC.OFFVIS ---
Intake Intake Visit Reasons: OV-Rt RTC Repair 02/15/23 NE Intake Note: Kyle is a 57 year old male who presents to the office today for a follow up rt RTC repair 02/15/23. Pt states he is feeling well and states that he is doing PT and states that during PT it is still painful but he feels that he is able to move his shoulder much better. Allergies No Known Allergies [No Known Allergies*] Allergy (Verified 06/26/23 09:25) HPI OV-Rt RTC Repair 02/15/23 NE HPI Details 4+ months s/p right RTC repair. He says he is doing well overall and both his pain and ROM have improved. He has been working with PT on strengthening and has been working light duty since his last appointment. He reports some pain during PT sessions but is happy this has helped improve his function. He would like to discuss his RTW status. [facility] Medical History Vitamin D deficiency Impaired fasting glucose Overweight (BMI 25.0-29.9) Smoker Plantar wart, left foot Pure hypercholesterolemia Benign essential hypertension Surgical History No significant past surgical history Family History Mother Bladder cancer COPD (chronic obstructive pulmonary disease) Father No problems noted. Social History Housing: House Are you a primary rn progressive care unit to a significant other at home: No Alcohol intake: current Alcohol intake frequency: a few times a month Alcohol type: beer Patient Tobacco Use Status: Current everyday Tobacco user Tobacco use type: Cigarette Cigarette Packs Per Day: 1 Cigarettes Per Day: 20.0 e-Cigarette/Vaping Use: Never Used Second Hand Smoke Exposure: Yes service: No Current occupational status: employed Cognitive needs: No Hearing needs: No Vision needs: No Review of Systems Const All systems reviewed & are unremarkable except as noted in HPI and below Physical Exam Const General: no acute distress, alert and awake Orientation/consciousness: patient oriented x3 HEENT Head: Yes normocephalic and Yes atraumatic Eyes EOM: EOMs intact bilaterally Resp Effort & Inspection: normal respiratory effort and able to speak in complete sentences Cardio Jugular venous distension: no JVD Skin General skin exam: turgor normal Rashes: no rashes Neuro General: patient oriented x3 Extrem Other: 45/70/110/S1 Intact empty can Psych Appearance: grossly normal Affect: normal affect Attitude: cooperative Assessment & Plan Assessment & Plan (1) S/P rotator cuff repair: Comment: 02/15/2023 NE Code(s): Z98.890 - Other specified postprocedural states Plan: 4+ months s/p right RTC repair. Improving with good ROM but still stiff in overhead activity. May return to sedentary work with no lifting and no overhead work. f/u 6 weeks Plan Prepared for Buster Benítez MD by Casey Clarke, medical scientific liaison, on 06/26/23 at 8:52 AM, EST. Coding Level of Care Code Est Pt Level 3 (75133) Diagnoses S/P rotator cuff repair Z98.890
== END 2023-06-26 09:36 | disposition home or self-care (01) ==
PROVIDERS: PCP Internal Medicine; Visit Provider Orthopaedic Surgery
DX: S46.011D Strain of muscle(s) and tendon(s) of the rotator cuff of right shoulder, subsequent encounter (principal)
CPT/HCPCS: 99212

== ENCOUNTER → 2023-06-26 09:23 | Outpatient (BNVA) | payer OTHER, SELFPAY | PROVIDERS: PCP Internal Medicine; Visit Provider Orthopaedic Surgery | DX: Z47.89 Encounter for other orthopedic aftercare (principal) | CPT/HCPCS: 99212 ==

== ENCOUNTER 2023-07-25 10:00 | Outpatient (RCR) | payer OTHER, SELFPAY ==
--- NOTE | 2023-02-27 13:00 | MHC.PT.EP ---
[facility] [place] Office [place] Office [place] Office [address] Ruth Roldan [address] [phone] F: [phone] F: [phone] F: [phone] F: [phone] Physical Therapy Plan of Care Date of Evaluation: 02/27/23 Date of Surgery: Diagnosis: R rotator cuff repair - full thickness supra and infra Assessment: Patient is a 57 year old R handed male who presents with s/s consistent with R rotator cuff repair, R shoulder pain. Pt had a full thickness supraspinatus and infraspinatus tear that were repaired per operative report. 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 Patient past medical history includes HTN and high cholesterol. Currently taking percocet for pain management. Current impairments include pain, posture, ROM, strength, activity tolerance and functional mobility. Functional limitations include decreased ability to use R UE for all daily activities. Patient is motivated with good rehab potential. Skilled PT will address impairments and functional limitations in order to achieve goals. Frequency and Duration: The patient will be seen 2x/week for 12 weeks Short Term Goals: I with HEP -2 weeks PROM flexion 120 - 3 weeks ER to 60 - 4 weeks I with sling management - 3 weeks pain free sleeping - 4 weeks Custodial Goals: Strength 4/5 grossly - 12 weeks SPADI 80/130 - 6 weeks SPADI 50/130 - 12 weeks Pain free return to all work and daily activities - 12 weeks Treatment Plan: Modalities to reduce pain, spasms and effusion. Manual therapy to restore motion and function. Therapeutic exercise to improve strength and flexibility. Neuromuscular re-education for posture and balance. Therapeutic activities to return to functional activities of daily living. Electronically signed by: Mart Veronica, PT Please sign and return to therapist. Thank you for your referral.
--- NOTE | 2024-02-07 10:26 | MHC.PT.DC ---
[facility] [employer] [place] Office [place] Office [place] Office [address] Ruth Roldan [address] [phone] F: [phone] F: [phone] F: [phone] F: [phone] Physical Therapy Discharge Report Diagnosis: R rotator cuff repair - full thickness supra and infra Date of Surgery: 02/15/23 Date of Evaluation: 02/27/23 Date of Discharge: 09/10/23 Treatments to Date: 34 Cancellations to Date: No Shows to Date: Discharge Status: Achieved Goals Independent with HEP Discharge Summary: 07/25/23: Pt has been progressing well over the course of skilled PT, maintaining motivation and compliance throughout. He has improved ROM, strength, posture, mechanics with reduced pain and improved functional mobility. He still has impairments of strength and mechanics, ROM and functional mobility however. His functional limitations include overhead activities, car maintenance and labor type activities, sleeping, reaching to the front and varying positions where he still has pain like reaching behind his back which would impact his dressing and bathing activities. SPADI 75/130. At this time, I believe it is best practice to extend therapy one more time, 2x/week for 4 more weeks to address these areas to ensure safe retunr to work activities and ensure optimal functional mobility and quality of life, reducing risk of re-injury once returning towards PLOF. 07/17; Pt stated he had reduced sxs after exs. Pt abd is still a struggle at times. 07/11/23: pt has mastered a level of independence with his HEP. he has progressed well but his progress is slowing. we are not tapering to 1x/week for 2 more visits then d/c to HEP on 07/25/23. 07/06/23: reduced tissue tension. improved quality of motion. improved overhead strength. encouraged him to resume ER stretching with cane in HEP. ; Pt stated it loosened up after the exs. Pt cont with PRE's increasing as neeta. 06/27; Pt mobility progressing. MD wants to work on increasing strength. 06/21; Pt progressing with ext rot strength and sh abd progressing. Pt sees MD. 06/20; Pt sh abd less c/o pain and progressing with mobility. Pt sees MD on Monday. 06/15; Pt has palpable density deltoid with STM. Pt pushing exs and ROM. Pt goal RBTW 06/29. 06/13/22: Pt continues to progress with postural awareness, ROM, strength, and mechanics. He still does have pain which limits function at times. ER strength is most limited in shoulder as well. His functional limitations including lifting, carrying, reaching into cabinets overhead, reaching out to side, laying on R side, and performing strenuous activities such as working on cars. He is motivated to continue to pursue progress and has good rehab potential. We will continues to address impairments to improved on functional limitations with PT 2x/week for 4 more weeks. At this time, we will discern approrpiateness of continuing vs d/c to HEP. 06/08/23: some tenderness reported at delt insertion. relieved with manual intervention. pt has been progressing well with strength. we will likely continue 5 more weeks then transition to HEP. 06/06/23: pt progressing well with skilled PT. no adverse reactions from above program. functionally improving. less pain overall with ROM. nearing full. 05/25/23: pt progressing with ROM. less pain and improved strength. reduced tissue tension after treatment today. 05/23;Pt had difficulty with A sh abd, but was able to achieve after warming up. Pt preforming exs daily. Pt wishes to RBTW due to bordom. 05/18; Pt abd is progressing with decreased c/o pain. Pt fatigued after exs. 05/16/22: pt is progressing AROM with weight with no adverse reactions. notes he has been compliant with HEP and is noticing less pain overall. 05/11/23: pt progressing well with skilled PT. ROM and strength improving and pt reports less pain in recent days. 05/09/23: pt continues to progress well with skilled PT for ROM and strength. He still has pain and mechanical abnormalities, as well as strength and ROM impairments which result in functional limitations including ability to sleep, reach, dress, lift, carry, work on cars and perform other extracurricular activities including UEs. Pt is motivated and would likely benefit from skilled PT to continue to address impairments and functional limitations. Goals are updated and PT should continue 2x/week for 6 more weeks to progress towards goals and optimal level of function. 05/03; Pt motivated with HEP. Pt reported manual reduces sxs. Pt has less density in pec and reduced c/o pain. 04/27/23: pt continues to progress with ROM and strength. he has significant prevalent compensatory scapular elevation with flexion and abduction. we will continue to work on this moving forward. 04/25; Pt had less tightness poec with manual RX with decreased c/o pain. Pt PROM progressing. 04/20/23: pt has been feeling better overall. still having difficulty with abduction. strength and ROM improving with ER and flexion. 04/18; Pt had redued D/S sxs after manual RX. Pt progressing with passive mobility. Active still limited and substitues with sh hiking. 04/13/23: pt demonstrating reduced discomfort with overhead activities. we did review HEP today and he has been compliant. ER is improving. ER at 90 is 62 04/11; Pt felt relief after clacvicle mobs with improved mobility with decrease c/o pain. 04/06/23: Pt has been progressing well with ROM and strength. Pain is still present. He is progressing towards his LTGs. He is I with HEP. He met PROM flexion 120, and is progressing towards ER 60. SPADI 78/130. He d/c from sling. Still has pain with sleeping, reaaching, lifting, carrying, dressing, and with small chores around the house. Impairments and functionals limitations still persist. We will continued to address impairments and functional limitations to achieve goals and ensure safe return to PLOF. We will continue 2x/week for 6 more weeks then transition to HEP at that time or soon after depending on progress. 04/04/23: pt progressing with ROM and strength. we have been progressing strength with caution and focus on mechanics. encouraged him not to push through pain at home. 03/30/23: pt progressing well with ROM And strength. updated HEP. ER to 59. 03/21/23: pt has been feeling better but shoulder feels tighter today. we did continue with submax isometrics. he did present without sling per MD orders which i discussed can cause tightness and soreness while shoulder is getting use to it. we will progress NV. 03/17/23: pt progressing well with skilled PT. ER 42, flexion 105. educated in cane ER stretching at home to continue to progress ER ROM. 03/14/23: pt progressing well with ROM. ER to 36 today. Flexion to 102. Continue to progress as tolerated. 03/09; Pt progressing with passive ROM. Pt motivated with HEP. 03/07/23: ER to about 10 today, increased tissue resistance and tension here. Flexion to 80. pt seemingly sore from fall at home. assess response Nv. 03/02; Pt was able to achieve 80 degrees of passive flexion and abduction. Pt had reduced stiffness after stretches. Patient is a 57 year old R handed male who presents with s/s consistent with R rotator cuff repair, R shoulder pain. Pt had a full thickness supraspinatus and infraspinatus tear that were repaired per operative report. 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 Patient past medical history includes HTN and high cholesterol. Currently taking percocet for pain management. Current impairments include pain, posture, ROM, strength, activity tolerance and functional mobility. Functional limitations include decreased ability to use R UE for all daily activities. Patient is motivated with good rehab potential. Skilled PT will address impairments and functional limitations in order to achieve goals. Electronically signed by: Mart Veronica, PT Please sign and return to therapist. Thank you for your referral.
== END 2024-02-07 10:26 | disposition home or self-care (01) ==
LOC: HO.PTCHIC 10:00
PROVIDERS: PCP Internal Medicine; Visit Provider Physician Assistant
DX: M75.101 Unspecified rotator cuff tear or rupture of right shoulder, not specified as traumatic (principal); M19.011 Primary osteoarthritis, right shoulder; Z98.890 Other specified postprocedural states
CPT/HCPCS: 97110; 97140; 97162; 97164

== ENCOUNTER 2023-08-07 09:11 | Outpatient (AMB) | payer OTHER, SELFPAY ==
--- NOTE | 2023-08-07 09:12 | A.OFFVIS_ITS ---
Intake Vital Signs 08/07/23 09:16 Height 6 ft Weight 215 lb BMI 29.2 Handedness Left Intake Visit Reasons: OV-Rt RTC Repair 02/15/23 NE Intake Note: Kyle is a 57 year old male who presents to the office today for a follow up rt RTC repair 02/15/23. At his last visit he was able to return to sedentary work with no lifting and no overhead work, but patient states that he has not returned to work at this time. He is able to exercise and lift the right arm but is struggling with overhead lifting. Allergies No Known Allergies [No Known Allergies*] Allergy (Verified 08/07/23 09:21) HPI OV-Rt RTC Repair 02/15/23 NE HPI Details Kyle is a 57 year old male who presents to the office today for a follow up rt RTC repair 02/15/23. At his last visit he was able to return to sedentary work with no lifting and no overhead work, but patient states that he has not returned to work at this time. He is able to exercise and lift the right arm but is struggling with overhead lifting. [facility] Medical History Vitamin D deficiency Impaired fasting glucose Overweight (BMI 25.0-29.9) Smoker Plantar wart, left foot Pure hypercholesterolemia Benign essential hypertension Surgical History No significant past surgical history Family History Mother Bladder cancer COPD (chronic obstructive pulmonary disease) Father No problems noted. Social History Housing: House Are you a primary care coordinator to a significant other at home: No Alcohol intake: current Alcohol intake frequency: a few times a month Alcohol type: beer Patient Tobacco Use Status: Current everyday Tobacco user Tobacco use type: Cigarette Cigarette Packs Per Day: 1 Cigarettes Per Day: 20.0 e-Cigarette/Vaping Use: Never Used Second Hand Smoke Exposure: Yes service: No Current occupational status: employed Cognitive needs: No Hearing needs: No Vision needs: No Physical Exam Vital Signs: BMI result Body Mass Index 29.2 Extrem Other: neg EC 30/90/120/S1 Assessment & Plan Assessment & Plan (1) S/P rotator cuff repair: Comment: 02/15/2023 NE Code(s): Z98.890 - Other specified postprocedural states Plan: Doing well s/p RTC repair May return to work with no lifting > 50 lbs and no overhead lifting > 10 lbs F/u 6-8 weeks Coding Level of Care Code Est Pt Level 3 (62420) Diagnoses S/P rotator cuff repair Z98.890
[2023-08-07 09:16] VITALS: BMI 29.2
== END 2023-08-07 10:26 | disposition home or self-care (01) ==
PROVIDERS: PCP Internal Medicine; Visit Provider Orthopaedic Surgery
DX: M75.101 Unspecified rotator cuff tear or rupture of right shoulder, not specified as traumatic (principal)
CPT/HCPCS: 99213

== ENCOUNTER → 2023-08-07 09:11 | Outpatient (BNVA) | payer OTHER, SELFPAY | PROVIDERS: PCP Internal Medicine; Visit Provider Orthopaedic Surgery | DX: Z09 Encounter for follow-up examination after completed treatment for conditions other than malignant neoplasm (principal) | CPT/HCPCS: 99212 ==

== ENCOUNTER 2023-10-02 09:06 | Outpatient (AMB) | payer OTHER, SELFPAY ==
[2023-10-02 09:17] VITALS: BMI 29.2
--- NOTE | 2023-10-02 09:17 | A.OFFVIS_ITS ---
Vital Signs 10/02/23 09:17 Height 6 ft Weight 215 lb BMI 29.2 Intake Visit Reasons: OV-Rt RTC Repair 02/15/23 NE Intake Note: Kyle is a 67 year old right hand dominant male who presents today for a follow up of his right RTC Repair 02/15/23. At his last visit he was released to work on light duty with no lifting greater than 50 lbs and no overhead lifting greater than 10 lbs. Patient reports that he is doing well, he has some mild increased pain with above the head movements. Allergies No Known Allergies [No Known Allergies*] Allergy (Verified 10/02/23 09:20) HPI HPI OV-Rt RTC Repair 02/15/23 NE: Details: Kyle is a 67 year old right hand dominant male who presents today for a follow up of his right RTC Repair 02/15/23. At his last visit he was released to work on light duty with no lifting greater than 50 lbs and no overhead lifting greater than 10 lbs. Patient reports that he is doing well, he has some mild increased pain with above the head movements. [facility] Medical History Vitamin D deficiency Impaired fasting glucose Overweight (BMI 25.0-29.9) Smoker Plantar wart, left foot Pure hypercholesterolemia Benign essential hypertension Surgical History No significant past surgical history Family History Mother Bladder cancer COPD (chronic obstructive pulmonary disease) Father No problems noted. Social History Housing: House Are you a primary managed care liaison to a significant other at home: No Alcohol intake: current Alcohol intake frequency: a few times a month Alcohol type: beer Patient Tobacco Use Status: Current everyday Tobacco user Tobacco use type: Cigarette Cigarette Packs Per Day: 1 Cigarettes Per Day: 20.0 e-Cigarette/Vaping Use: Never Used Second Hand Smoke Exposure: Yes service: No Current occupational status: employed Cognitive needs: No Hearing needs: No Vision needs: No Physical Exam Vital Signs: BMI result Body Mass Index 29.2 Extrem Other: neg EC 30/90/120/S1 Assessment & Plan Assessment & Plan (1) S/P rotator cuff repair: Comment: 02/15/2023 NE Code(s): Z98.890 - Other specified postprocedural states Category: Surgical Plan: Doing well s/p RTC repair No changes to current work restrictions: No lifting > 50 lbs and no overhead lifting > 10 lbs F/u 6-8 weeks Coding Level of Care Code Est Pt Level 3 (59564) Diagnoses S/P rotator cuff repair Z98.890
== END 2023-10-02 09:43 | disposition home or self-care (01) ==
PROVIDERS: PCP Internal Medicine; Visit Provider Orthopaedic Surgery
DX: S46.011D Strain of muscle(s) and tendon(s) of the rotator cuff of right shoulder, subsequent encounter (principal)
CPT/HCPCS: 99212

== ENCOUNTER → 2023-10-02 09:06 | Outpatient (BNVA) | payer OTHER, SELFPAY | PROVIDERS: PCP Internal Medicine; Visit Provider Orthopaedic Surgery | DX: Z47.89 Encounter for other orthopedic aftercare (principal) | CPT/HCPCS: 99212 ==

== ENCOUNTER 2023-12-18 08:29 | Outpatient (AMB) | payer OTHER, SELFPAY ==
[2023-12-18 08:40] VITALS: BMI 29.2
--- NOTE | 2023-12-18 08:40 | MHC.OFFVIS ---
Vital Signs 12/18/23 08:40 Height 6 ft Weight 215 lb BMI 29.2 Intake Visit Reasons: OV-Rt RTC Repair 02/15/23 NE Intake Note: Kyle is a 67 year old right hand dominant male who presents today for a follow up of his right RTC Repair 02/15/23. At his last visit he was released to work on light duty with no lifting greater than 50 lbs and no overhead lifting greater than 10 lbs. Patient reports that he is doing well, the only discomfort he feels is at night while sleeping. Allergies No Known Allergies [No Known Allergies*] Allergy (Verified 12/18/23 08:42) HPI HPI OV-Rt RTC Repair 02/15/23 NE: Details: Kyle is a 67 year old right hand dominant male who presents today for a follow up of his right RTC Repair 02/15/23. At his last visit he was released to work on light duty with no lifting greater than 50 lbs and no overhead lifting greater than 10 lbs. Patient reports that he is doing well, the only discomfort he feels is at night while sleeping. He has no complaints and he has returned to full activity at work. [facility] Medical History Vitamin D deficiency Impaired fasting glucose Overweight (BMI 25.0-29.9) Smoker Plantar wart, left foot Pure hypercholesterolemia Benign essential hypertension Surgical History No significant past surgical history Family History Mother Bladder cancer COPD (chronic obstructive pulmonary disease) Father No problems noted. Social History Housing: House Are you a primary administrator health care facility to a significant other at home: No Alcohol intake: current Alcohol intake frequency: a few times a month Alcohol type: beer Patient Tobacco Use Status: Current everyday Tobacco user Tobacco use type: Cigarette Cigarette Packs Per Day: 1 Cigarettes Per Day: 20.0 e-Cigarette/Vaping Use: Never Used Second Hand Smoke Exposure: Yes service: No Current occupational status: employed Cognitive needs: No Hearing needs: No Vision needs: No Physical Exam Vital Signs: BMI result Body Mass Index 29.2 Extrem Other: Full range of motion right shoulder 5/5 empty can Negative [place] and Norma Assessment & Plan Assessment & Plan (1) S/P rotator cuff repair: Comment: 02/15/2023 NE Code(s): Z98.890 - Other specified postprocedural states Category: Surgical Plan: Status post large rotator cuff repair. He is doing very well. He may return to work without restrictions. He has reached maximum medical improvement. Coding Level of Care Code Est Pt Level 3 (17514) Diagnoses S/P rotator cuff repair Z98.890
== END 2023-12-18 08:48 | disposition home or self-care (01) ==
PROVIDERS: PCP Internal Medicine; Visit Provider Orthopaedic Surgery
DX: S46.011A Strain of muscle(s) and tendon(s) of the rotator cuff of right shoulder, initial encounter (principal)
CPT/HCPCS: 99212

== ENCOUNTER → 2023-12-18 08:29 | Outpatient (BNVA) | payer OTHER, SELFPAY | PROVIDERS: PCP Internal Medicine; Visit Provider Orthopaedic Surgery | DX: Z09 Encounter for follow-up examination after completed treatment for conditions other than malignant neoplasm (principal) | CPT/HCPCS: 99212 ==

== ENCOUNTER 2024-04-02 08:52 | Outpatient (AMB) | payer OTHER, SELFPAY ==
[2024-04-02 09:07] VITALS: BP 152/90; PULSE 70; O2SAT 97; BMI 29.6
--- NOTE | 2024-04-02 09:07 | A.OFFPC_ITS ---
Vital Signs 04/02/24 09:07 Height 6 ft Weight 218 lb 6 oz BMI 29.6 BP 152/90 H Blood Pressure Location Lt brachial Position Sitting Pulse 70 Pulse Source Pulse Oximeter Pulse Oximetry (%) 97 Oxygen Delivery Method Room Air Intake Visit Reasons: PE Executive Secretary Required: No Accompanied by: Self / Same As Patient Allergies No Known Allergies [No Known Allergies*] Allergy (Verified 04/02/24 09:26) Medication List - Last Reconciled 04/02/24 by Nick Smith MD lisinopril 10 mg PO DAILY 90 days Tobacco use date assessed: 04/02/24 Dental Screening Dental Screen Date: 04/02/24 Did you have a dental visit in the last 12 months?: No Did you have a dental problem in the last 6 months where you did not have access to dental care?: No Was dental information given to patient?: No HPI PE HPI Details Patient comes in today for his annual physical examination He was last seen here over a year ago in July 2022 - states that he lost his health insurance coverage for a while and could not come in for his previous appointment He also admitted to stopping his cholesterol medication on his own several months ago now and is currently just taking his Lisinopril for his blood pressure He denies any headaches or dizziness Denies any chest pains, no SOB No nausea/vomiting, no abdominal pain No change in bowel habits noted He denies any acute urinary symptoms He has never had a screening colonosocopy done but he had a Cologuard test done last year (2022) that came out negative Adds that he continues to struggle with diminished visual acuity and has recently maxed out his readers - would like to get in to see ophthalmology for further evaluation of his vision issues States that he was referred to ophthalmology a couple of years ago and he even tried to call them up himself to schedule an appointment but could not get ahold of anybody there at the eye doctors' office [facility] Medical History Vitamin D deficiency Impaired fasting glucose Overweight (BMI 25.0-29.9) Smoker Plantar wart, left foot Pure hypercholesterolemia Benign essential hypertension Surgical History S/P rotator cuff repair No significant past surgical history Family History Mother Bladder cancer COPD (chronic obstructive pulmonary disease) Father No problems noted. Social History Housing: House Are you a primary regular senior care provider to a significant other at home: No Alcohol intake: current Alcohol intake frequency: a few times a month Alcohol type: beer Patient Tobacco Use Status: Current everyday Tobacco user Tobacco use type: Cigarette Cigarette Packs Per Day: 1 Cigarettes Per Day: 20.0 e-Cigarette/Vaping Use: Never Used Second Hand Smoke Exposure: Yes service: No Current occupational status: employed Cognitive needs: No Hearing needs: No Vision needs: No Questionnaire PHQ-9 Over the last 2 weeks, how often have you been bothered by any of the following problems? 1. Little interest or pleasure in doing things: not at all 2. Feeling down, depressed, or hopeless: not at all 3. Trouble falling or staying asleep, or sleeping too much: not at all 4. Feeling tired or having little energy: not at all 5. Poor appetite or overeating: not at all 6. Feeling bad about yourself - or that you are a failure or have let yourself or your family down: not at all 7. Trouble concentrating on things, such as reading the newspaper or watching television: not at all 8. Moving or speaking so slowly that other people could have noticed. Or the opposite - being so fidgety or restless that you have been moving around a lot more than usual: not at all 9. Thoughts that you would be better off or of hurting yourself in some way: not at all Total score: 0 Depression Screening Interpretation: Negative Depression Screening Done: Yes 20243 - PHQ-9 Billing: Yes Source: Developed by Drs. Kyle Nunes, Ellie Kim, Jaxson Sexton and colleagues, with an educational janice from [employer] Thrive Questionnaire Date Thrive assessed: 04/02/24 I am a: Patient What is your living situation today?: I have a steady place to live Within the past 12 months, did the food you bought not last and you didn't have the money to get more?: Sometimes True Within the past 12 months, did you worry whether your food would run out before you got money to buy more?: Never true Do you have trouble paying for medicines?: No Do you have trouble getting transportation to medical appointments?: No Do you have trouble paying your heating and electricity bill?: I choose not to answer this question Do you have trouble taking care of your child, family member or friend?: I choose not to answer this question Do you have trouble with day-to-day activities such as bathing, preparing meals, shopping, managing finances, etc.?: No Are you currently unemployed and looking for a job?: No Are you interested in more education?: No Please select the resources that you would like help with: None Currently or been in a relationship where the following occur: No concerns reported THRIVE Score: 1 AUDIT C Alcohol Use Questionnaire (AUDIT-C) 1. How often do you have a drink containing alcohol?: 2-4 times a month 2. How many drinks containing alcohol do you have on a typical day when you are drinking?: 5 or 6 3. How often do you have six or more drinks on one occasion?: Never Total Score: 4 Score Reviewed/Action Taken: Yes SHANIA-7 AMB Questionnaire SHANIA-7 Date SHANIA - 7 assessed: 04/02/24 Feeling nervous, anxious, or on edge: 0 = Not at all Not being able to stop or control worryin = Not at all Worrying too much about different things: 0 = Not at all Trouble relaxin = Not at all Being so restless that it is hard to sit still: 0 = Not at all Becoming easily annoyed or irritable: 0 = Not at all Feeling afraid as if something awful might happen: 0 = Not at all Total SHANIA-7 score (0-4 normal; 5-9 mild; 10-14 moderate; 15-21 severe): 0 Source: Developed by Drs. Kyle Nunes, Ellie Kim, Jaxson Sexton and colleagues, with an educational janice from [employer] Review of Systems Const Denies chills, Reports difficulty sleeping (at times), Denies fatigue, Denies fever(s), Denies headache(s), Denies malaise and Denies weakness Eyes Reports blurry vision (bilateral), Denies change in vision, Denies irritation and Denies itchy eyes ENT Denies dysphagia, Denies dizziness, Denies otalgia, Denies headache(s), Denies nasal congestion, Denies neck pain, Denies odynophagia and Denies sore throat Card Denies chest pain, Denies rapid heart rate, Denies irregular heart rhythm, Denies palpitations and Denies dyspnea Resp Denies chest congestion, Denies cough, Denies dyspnea and Denies wheezing GI Denies abdominal pain, Denies bloating, Denies constipation, Denies dysphagia, Denies heartburn, Denies diarrhea, Denies nausea, Denies odynophagia and Denies vomiting Denies hematuria, Denies difficulty urinating, Denies dysuria, Denies urinary frequency and Denies urinary urgency Musc Denies back pain, Denies arthralgias, Denies joint swelling, Denies muscle weakness and Denies neck pain Skin/Breast Denies change in pigmentation, Denies lesions, Denies rash and Denies unusual bruising Neuro Denies dizziness, Denies headache(s), Denies paresthesias and Denies weakness Endo Denies fatigue and Denies palpitations Aller/Immun Denies itchy eyes and Denies wheezing Physical exam (Primary Care) Vital Signs: Last Vital Signs Pulse 70 04/02/24 09:07 BP 152/90 H 04/02/24 09:07 Pulse Ox 97 04/02/24 09:07 Oxygen Delivery Method Room Air 04/02/24 09:07 BMI result Body Mass Index 29.6 Tobacco/Smoking Status: Tobacco use Status Tobacco use date assessed 04/02/24 04/02/24 09:11 Patient Tobacco Use Status Current everyday Tobacco 04/02/24 09:11 Tobacco use type Cigarette 04/02/24 09:11 e-Cigarette/Vaping Use Never Used 04/02/24 09:11 PHQ-9: PHQ-9 Score PHQ-9: Total score 0 04/02/24 09:31 Depression Screening Interpretation: Negative Thrive Assessment: Date of Thrive Assessment Date Thrive assessed 04/02/24 04/02/24 09:11 Currently or been in a relationship where the following occur: No concerns reported Const General: no acute distress, alert and awake Orientation/consciousness: patient oriented x3 HENMT Head: Yes normocephalic and Yes atraumatic Ears: external ears normal, TM's normal bilaterally and EAC's normal General nose exam: No nasal discharge present Face and sinus: Yes normal facial exam and Yes sinuses nontender Teeth and gingiva: dentition normal Throat: Yes posterior oropharynx normal and Yes tonsils normal (no TP congestion) Eyes Eyelids: Yes eyelids normal Conjunctivae: conjunctivae normal Pupils: Equal, round and reactive pupils present EOM: EOMs intact bilaterally Neck Neck: Yes no lymphadenopathy and Yes supple Thyroid: Thyroid normal Resp Auscultation: clear to auscultation bilaterally, no rales and no wheezes Cardio Rate: regular rate Rhythm: regular rhythm Heart sounds: no murmurs GI Palpation (GI): Soft to palpation, nontender and No hepatosplenomegaly present Auscultation: normal bowel sounds General: Yes no CVA tenderness Back/Spine/Pelvis Back: no CVA tenderness Thoracic/Lumbar Spine: thoracic and lumbar spine normal to inspection Skin Lesions: no lesions Rashes: no rashes Neuro General: patient oriented x3, moves all extremities, no focal motor deficits and CN's II-XI intact bilaterally Cranial nerves: Yes Equal, round and reactive pupils present Cognition (Neuro): normal cognition Gait exam (Neuro): Normal gait present Extrem General: Yes no clubbing, cyanosis or edema Coding Level of Care Code Est Pt Prev Care 40-64y(03025) Diagnoses Annual physical exam Z00.00 Pure hypercholesterolemia E78.00 Benign essential hypertension I10 Impaired fasting glucose R73.01 Blurry vision, bilateral H53.8 Tear of right rotator cuff, unspecified tear extent, unspecified whether traumatic M75.101 Rotator cuff tear extent: unspecified tear extent Rotator cuff tear trauma status: unspecified whether traumatic Vitamin D deficiency E55.9 Smoker F17.200 Overweight (BMI 25.0-29.9) E66.3 Additional Codes PHQ-9 - 21596 - PHQ-9 Billing: Yes ([id number]) Assessment & Plan Assessment & Plan (1) Annual physical exam: Code(s): Z00.00 - Encounter for general adult medical examination without abnormal findings Category: Medical Plan: Check labs CAIO He is up-to-date with his colon cancer screening - had a negative Cologuard test last year (2022) (2) Pure hypercholesterolemia: Code(s): E78.00 - Pure hypercholesterolemia, unspecified Category: Medical Plan: Reinforced low cholesterol diet Patient admitted to self-discontinuing his Pravastatin several months ago so his cholesterol will likely be increased and maybe even higher than previous Will wait and see how his cholesterol numbers are currently - he is instructed to go and get his follow up labs done CAIO - and depending on how they are, we may have to switch him to a more potent statin like Atorvastatin or Rosuvastatin Will also have him recheck his labs and fasting lipids again in 4 months for follow up - to be done just before he comes back for his appointment then (3) Benign essential hypertension: Code(s): I10 - Essential (primary) hypertension Category: Medical Plan: Reinforced low sodium diet - goal is systolic BP of 120 mm or less Will go ahead and increase his Lisinopril from 10 mg to 20 mg QD (4) Impaired fasting glucose: Code(s): R73.01 - Impaired fasting glucose Category: Medical Plan: His FBS was slightly elevated at 104 mg/dl on his previous labs but his HgbA1c was normal at 5.4% Reinforced low calorie diet/exercise as tolerated Will recheck his blood sugar and HgbA1c for follow up (5) Blurry vision, bilateral: Code(s): H53.8 - Other visual disturbances Category: Medical Plan: Will try referring him again to ophthalmology for further evaluation and management of his vision issues (6) Right rotator cuff tear: Code(s): M75.101 - Unspecified rotator cuff tear or rupture of right shoulder, not specified as traumatic Category: Medical Qualifiers: Rotator cuff tear extent: unspecified tear extent Rotator cuff tear trauma status: unspecified whether traumatic Qualified Code(s): M75.101 - Unspecified rotator cuff tear or rupture of right shoulder, not specified as traumatic Plan: S/P right rotator cuff surgical repair with Dr. Benítez back on 02/15/2023 Patient states that his shoulder symptoms have improved significantly with surgery and with physical therapy Follow up with orthopedics as scheduled (7) Vitamin D deficiency: Code(s): E55.9 - Vitamin D deficiency, unspecified Category: Medical Plan: His Vitamin D level was corrected when last checked over a year ago Will recheck his Vitamin D level for follow up (8) Smoker: Code(s): F17.200 - Nicotine dependence, unspecified, uncomplicated Category: Social Hx Plan: Patient is counseled again on smoking cessation (9) Overweight (BMI 25.0-29.9): Code(s): E66.3 - Overweight Category: Medical Plan: Reinforced diet/exercise as tolerated/lose weight Plan Follow up in 4 months Orders: Orders Complete Blood Count Auto Diff Today D64.9 - Anemia, unspecified, Z00.00 - Encounter for general adult medical examination without abnormal findings Comprehensive [place]. Panel Fast Today E78.00 - Pure hypercholesterolemia, unspecified, Z00.00 - Encounter for general adult medical examination without abnormal findings Lipid Panel Today E78.00 - Pure hypercholesterolemia, unspecified, Z00.00 - Encounter for general adult medical examination without abnormal findings TSH reflex Free T4 Today E78.00 - Pure hypercholesterolemia, unspecified, Z00.00 - Encounter for general adult medical examination without abnormal findings UA CC w/rflx Micro + Cult Today R30.0 - Dysuria, Z00.00 - Encounter for general adult medical examination without abnormal findings Lipid Panel 4 Months E78.00 - Pure hypercholesterolemia, unspecified Vitamin D 25-OH Total Today E55.9 - Vitamin D deficiency, unspecified, Z00.00 - Encounter for general adult medical examination without abnormal findings Prostate Specific Antigen Scr Today Z00.00 - Encounter for general adult medical examination without abnormal findings Comprehensive [place]. Panel Fast 4 Months E78.00 - Pure hypercholesterolemia, unspecified Referrals Ophthalmology Referral H53.8 - Other visual disturbances Medications: Changed From lisinopril 10 mg PO DAILY 90 days 90 tabs 0RF I10 - Essential (primary) hypertension To lisinopril 20 mg PO DAILY 90 days 90 tabs 1RF I10 - Essential (primary) hypertension
== END 2024-04-02 09:37 | disposition home or self-care (01) ==
PROVIDERS: PCP Internal Medicine; Visit Provider Internal Medicine
DX: Z00.00 Encounter for general adult medical examination without abnormal findings (principal); E78.00 Pure hypercholesterolemia, unspecified; I10 Essential (primary) hypertension; R73.01 Impaired fasting glucose; H53.8 Other visual disturbances; M75.101 Unspecified rotator cuff tear or rupture of right shoulder, not specified as traumatic; E55.9 Vitamin D deficiency, unspecified; F17.200 Nicotine dependence, unspecified, uncomplicated; E66.3 Overweight

== ENCOUNTER → 2024-04-02 08:52 | Outpatient (BNVA) | payer OTHER, SELFPAY | PROVIDERS: PCP Internal Medicine; Visit Provider Internal Medicine | DX: Z00.00 Encounter for general adult medical examination without abnormal findings (principal); E78.00 Pure hypercholesterolemia, unspecified; I10 Essential (primary) hypertension; R73.01 Impaired fasting glucose; H53.8 Other visual disturbances; M75.101 Unspecified rotator cuff tear or rupture of right shoulder, not specified as traumatic; E55.9 Vitamin D deficiency, unspecified; E66.3 Overweight; F17.210 Nicotine dependence, cigarettes, uncomplicated; Z79.899 Other long term (current) drug therapy | CPT/HCPCS: 96127; 99396 ==

== ENCOUNTER 2024-08-01 09:17 | Outpatient (AMB) | payer OTHER, SELFPAY ==
[2024-08-01 09:23] VITALS: BP 138/86; PULSE 66; O2SAT 97; BMI 29.6
--- NOTE | 2024-08-01 09:23 | A.OFFPC_ITS ---
Vital Signs 08/01/24 09:23 Height 6 ft Weight 218 lb 2 oz BMI 29.6 BP 138/86 Blood Pressure Location Lt brachial Position Sitting Pulse 66 Pulse Source Pulse Oximeter Pulse Oximetry (%) 97 Oxygen Delivery Method Room Air Intake Visit Reasons: 4 Months f/u Can Filling Machine Operator Required: No Accompanied by: Self / Same As Patient Allergies No Known Allergies [No Known Allergies*] Allergy (Verified 08/01/24 09:53) Medication List - Last Reconciled 08/01/24 by Nick Smith MD lisinopril 20 mg PO DAILY 90 days Tobacco use date assessed: 04/02/24 Dental Screening Dental Screen Date: 04/02/24 Did you have a dental visit in the last 12 months?: No Did you have a dental problem in the last 6 months where you did not have access to dental care?: No Was dental information given to patient?: Patient has dentist HPI 4 Months f/u HPI Details Patient comes in today for his follow up visit for his HTN and hyperlipidemia Recalls that he experienced a brief bout of dizziness (lasting for about 30 minutes) sometime around one and a half months ago States that he has not had any recurrence of his dizziness since Reports that he also tested positive for COVID about a month ago but his symptoms have mostly cleared up at this time He denies any headaches Denies any chest pains, no increased SOB No nausea/vomiting, no abdominal pain No change in bowel habits noted He had his follow-up labs done a few days ago - discuss his results [facility] Medical History Vitamin D deficiency Impaired fasting glucose Overweight (BMI 25.0-29.9) Smoker Plantar wart, left foot Pure hypercholesterolemia Benign essential hypertension Surgical History S/P rotator cuff repair No significant past surgical history Family History Mother Bladder cancer COPD (chronic obstructive pulmonary disease) Father No problems noted. Social History Housing: House Are you a primary managed care nurse to a significant other at home: No Alcohol intake: current Alcohol intake frequency: a few times a month Alcohol type: beer Patient Tobacco Use Status: Current everyday Tobacco user Tobacco use type: Cigarette Cigarette Packs Per Day: 1 Cigarettes Per Day: 20.0 e-Cigarette/Vaping Use: Never Used Second Hand Smoke Exposure: Yes service: No Current occupational status: employed Cognitive needs: No Hearing needs: No Vision needs: No Questionnaire PHQ-9 Over the last 2 weeks, how often have you been bothered by any of the following problems? 1. Little interest or pleasure in doing things: not at all 2. Feeling down, depressed, or hopeless: not at all 3. Trouble falling or staying asleep, or sleeping too much: not at all 4. Feeling tired or having little energy: not at all 5. Poor appetite or overeating: not at all 6. Feeling bad about yourself - or that you are a failure or have let yourself or your family down: not at all 7. Trouble concentrating on things, such as reading the newspaper or watching television: not at all 8. Moving or speaking so slowly that other people could have noticed. Or the opposite - being so fidgety or restless that you have been moving around a lot more than usual: not at all 9. Thoughts that you would be better off or of hurting yourself in some way: not at all Total score: 0 Depression Screening Interpretation: Negative Depression Screening Done: Yes 23090 - PHQ-9 Billing: Yes Source: Developed by Drs. Kyle Nunes, Ellie Kim, Jaxson Sexton and colleagues, with an educational janice from [employer]. Thrive Questionnaire Date Thrive assessed: 08/01/24 I am a: Patient What is your living situation today?: I have a steady place to live Within the past 12 months, did the food you bought not last and you didn't have the money to get more?: Sometimes True Within the past 12 months, did you worry whether your food would run out before you got money to buy more?: Never true Do you have trouble paying for medicines?: No Do you have trouble getting transportation to medical appointments?: No Do you have trouble paying your heating and electricity bill?: I choose not to answer this question Do you have trouble taking care of your child, family member or friend?: I choose not to answer this question Do you have trouble with day-to-day activities such as bathing, preparing meals, shopping, managing finances, etc.?: No Are you currently unemployed and looking for a job?: No Are you interested in more education?: No Please select the resources that you would like help with: None Currently or been in a relationship where the following occur: I choose not to answer THRIVE Score: 1 AUDIT C Alcohol Use Questionnaire (AUDIT-C) 1. How often do you have a drink containing alcohol?: Monthly or less 2. How many drinks containing alcohol do you have on a typical day when you are drinking?: 3 or 4 3. How often do you have six or more drinks on one occasion?: Less than monthly Total Score: 3 Score Reviewed/Action Taken: Yes SHANIA-7 AMB Questionnaire SHANIA-7 Date SHANIA - 7 assessed: 08/01/24 Feeling nervous, anxious, or on edge: 0 = Not at all Not being able to stop or control worryin = Not at all Worrying too much about different things: 0 = Not at all Trouble relaxin = Not at all Being so restless that it is hard to sit still: 0 = Not at all Becoming easily annoyed or irritable: 0 = Not at all Feeling afraid as if something awful might happen: 0 = Not at all Total SHANIA-7 score (0-4 normal; 5-9 mild; 10-14 moderate; 15-21 severe): 0 Source: Developed by Drs. Kyle Nunes, Ellie Kim, Jaxson Sexton and colleagues, with an educational janice from [employer]. Review of Systems Const Denies chills, Reports difficulty sleeping (at times), Denies fatigue, Denies fever(s) and Denies headache(s) ENT Denies dysphagia, Denies dizziness, Denies otalgia, Denies headache(s), Denies neck pain, Denies odynophagia and Denies sore throat Card Denies chest pain, Denies irregular heart rhythm, Denies palpitations and Denies dyspnea Resp Denies chest congestion, Denies cough and Denies dyspnea GI Denies abdominal pain, Denies constipation, Denies dysphagia, Denies heartburn, Denies diarrhea, Denies nausea, Denies odynophagia and Denies vomiting Denies difficulty urinating, Denies dysuria and Denies urinary frequency Musc Denies back pain, Denies arthralgias and Denies neck pain Skin/Breast Denies rash Neuro Denies dizziness, Denies headache(s) and Denies paresthesias Endo Denies fatigue and Denies palpitations Physical exam (Primary Care) Vital Signs: Last Vital Signs Pulse 66 08/01/24 09:23 BP 138/86 08/01/24 09:23 Pulse Ox 97 08/01/24 09:23 Oxygen Delivery Method Room Air 08/01/24 09:23 BMI result Body Mass Index 29.6 Tobacco/Smoking Status: Tobacco use Status Tobacco use date assessed 04/02/24 08/01/24 09:30 Patient Tobacco Use Status Current everyday Tobacco 08/01/24 09:30 Tobacco use type Cigarette 08/01/24 09:30 e-Cigarette/Vaping Use Never Used 08/01/24 09:30 PHQ-9: PHQ-9 Score PHQ-9: Total score 0 08/01/24 09:57 Depression Screening Interpretation: Negative Thrive Assessment: Date of Thrive Assessment Date Thrive assessed 08/01/24 08/01/24 09:30 Currently or been in a relationship where the following occur: I choose not to answer Const General: no acute distress and alert HENMT Ears: TM's normal bilaterally and EAC's normal Throat: Yes posterior oropharynx normal and Yes tonsils normal (no TP congestion) Neck Neck: Yes supple and No lymphadenopathy Thyroid: Thyroid normal Resp Auscultation: clear to auscultation bilaterally, no rales and no wheezes Cardio Rate: regular rate Rhythm: regular rhythm Heart sounds: no murmurs GI Palpation (GI): Soft to palpation and nontender Auscultation: normal bowel sounds General: Yes no CVA tenderness Back/Spine/Pelvis Back: no CVA tenderness Thoracic/Lumbar Spine: No lumbar spinal tenderness Skin Rashes: no rashes Extrem General: Yes no clubbing, cyanosis or edema Results Reviewed Results Reviewed: Laboratory Tests 08/23/22 07/27/24 07/27/24 06:16 07:55 07:58 WBC 8.5 Hgb 14.7 Hct 45.2 Plt Count 403 H Sodium 141 Potassium 4.4 Creatinine 0.83 Estimated GFR > 60 Fasting Glucose 109 H Calcium 9.1 AST 21 ALT 21 Triglycerides 281 155 H Cholesterol 243 226 H LDL Cholesterol, Calc 143 153 H HDL Cholesterol 44 42 PSA Screen 0.76 25-OH Vitamin D Total 18.4 L TSH 1.17 Ur Specific [place] 1.020 Urine Protein Negative Urine Glucose (UA) Negative Urine Blood Negative Urine Nitrite Negative Ur Leukocyte Esterase Negative Coding Level of Care Code Est Pt Level 4 (02389) Complex EM visit Add On G2211 Diagnoses Pure hypercholesterolemia E78.00 Benign essential hypertension I10 Impaired fasting glucose R73.01 Tear of right rotator cuff, unspecified tear extent, unspecified whether traumatic M75.101 Rotator cuff tear extent: unspecified tear extent Rotator cuff tear trauma status: unspecified whether traumatic Vitamin D deficiency E55.9 Smoker F17.200 Overweight (BMI 25.0-29.9) E66.3 Additional Codes PHQ-9 - 14947 - PHQ-9 Billing: Yes ([id number]) Assessment & Plan Assessment & Plan (1) Pure hypercholesterolemia: Code(s): E78.00 - Pure hypercholesterolemia, unspecified Category: Medical Plan: Results of his labs done a few days ago reviewed and discussed with patient - he is advised that his LDL cholesterol has increased slightly from previous although his serum triglyceride level has improved from his numbers a couple of years ago Reinforced low cholesterol diet Patient used to take Pravastatin 10 mg QD but he self-discontinued his Rx last year Will start him back on Pravastatin 10 mg QD for now and if his numbers do not improve significantly over the next few months, may need to either increase his dose or switch him to a more potent statin like Atorvastatin or Rosuvastatin Will have him recheck his labs and fasting lipids in 4 months for follow up (2) Benign essential hypertension: Code(s): I10 - Essential (primary) hypertension Category: Medical Plan: Reinforced low sodium diet - goal is systolic BP of 120 mm or less Continue Lisinopril 20 mg QD - discussed the possibility of increasing his dose further at his next visit if his systolic BP is still not at goal He is reminded to continue monitoring his blood pressure regularly (3) Impaired fasting glucose: Code(s): R73.01 - Impaired fasting glucose Category: Medical Plan: His FBS was still slightly elevated at 109 mg/dl on his recent labs but his HgbA1c was normal at 5.4% when previously checked Reinforced low calorie diet/exercise as tolerated Will recheck his blood sugar and HgbA1c in a few months for follow up (4) Right rotator cuff tear: Code(s): M75.101 - Unspecified rotator cuff tear or rupture of right shoulder, not specified as traumatic Category: Medical Qualifiers: Rotator cuff tear extent: unspecified tear extent Rotator cuff tear trauma status: unspecified whether traumatic Qualified Code(s): M75.101 - Unspecified rotator cuff tear or rupture of right shoulder, not specified as traumatic Plan: S/P right rotator cuff surgical repair with Dr. Benítez back on 02/15/2023 Patient states that his shoulder symptoms have improved significantly with surgery and with physical therapy Follow up with orthopedics as scheduled (5) Vitamin D deficiency: Code(s): E55.9 - Vitamin D deficiency, unspecified Category: Medical Plan: He is advised that his Vitamin D level was low on his recent labs Will start him back on Vitamin D3 2000 units QD (6) Smoker: Code(s): F17.200 - Nicotine dependence, unspecified, uncomplicated Category: Social Hx Plan: Patient is counseled again on complete smoking cessation (7) Overweight (BMI 25.0-29.9): Code(s): E66.3 - Overweight Category: Medical Plan: Reinforced diet/exercise as tolerated/lose weight Plan Follow up in 4 months Orders: Orders Lipid Panel 4 Months E78.00 - Pure hypercholesterolemia, unspecified Vitamin D 25-OH Total 4 Months E55.9 - Vitamin D deficiency, unspecified Complete Blood Count Auto Diff 4 Months D64.9 - Anemia, unspecified Comprehensive [place]. Panel Fast 4 Months E78.00 - Pure hypercholesterolemia, unspecified Hemoglobin A1c 4 Months R73.01 - Impaired fasting glucose Medications: New cholecalciferol (vitamin D3) 50 mcg PO DAILY 90 days 90 caps 3RF E55.9 - Vitamin D deficiency, unspecified Refilled pravastatin 10 mg PO DAILY 90 days 90 tabs 1RF E78.00 - Pure hypercholesterolemia, unspecified
== END 2024-08-01 10:06 | disposition home or self-care (01) ==
LOC: HO.HMCH 09:18
PROVIDERS: PCP Internal Medicine; Visit Provider Internal Medicine
DX: E78.00 Pure hypercholesterolemia, unspecified (principal); I10 Essential (primary) hypertension; R73.01 Impaired fasting glucose; M75.101 Unspecified rotator cuff tear or rupture of right shoulder, not specified as traumatic; E55.9 Vitamin D deficiency, unspecified; F17.200 Nicotine dependence, unspecified, uncomplicated; E66.3 Overweight